=== PATIENT | female | born 1965 | race Caucasian/White ===

== ENCOUNTER → 2018-07-30 | Outpatient (REF) | payer OTHER ==
[~2018-07-30] MED LIST: COGENTIN; DILT120C3; ENAL20TA; FURO20TA2; HALDOL DECANOATE; LEVOXYL25 MCG; LIPI10TA; NASONEX; PEPC20TA2; RANI150C; SERT25TA2; SERTRALINE; TOPI50TA
== END ==
LOC: M LAB LCGH 11:27
PROVIDERS: ATTEND Obstetrics & Gynecology
DX: Z12.4 Encounter for screening for malignant neoplasm of cervix (principal)

== ENCOUNTER 2021-03-06 16:59 | Emergency (ER) | payer OTHER ==
[~2021-03-06] VITALS: Ht 162.6 cm; Wt 154.1 kg
[2021-03-06 18:06] LABS: HEMATOCRIT 42.7 % (36.0-47.0); MEAN CORPUSCULAR HEMOGLOBIN 29.7 pg (27.0-33.0); MEAN CORPUSCULAR HGB CONC 32.8 g/dl (32.0-36.5); MEAN CORPUSCULAR VOLUME 90.7 fl (80.0-96.0); PLATELET COUNT, AUTOMATED 387 10^3/uL (150-450); RED BLOOD COUNT 4.71 10^6/uL (4.00-5.40); WHITE BLOOD COUNT 11.2 10^3/uL (4.0-10.0)
[2021-03-06 18:33] LABS: ACETAMINOPHEN LEVEL < 2.0 UG/ML (10.0-30.0); ALBUMIN 3.7 GM/DL (3.2-5.2); ALT/SGPT 48 U/L (12-78); BILIRUBIN,DIRECT 0.1 MG/DL (0.0-0.2); BILIRUBIN,TOTAL 0.2 MG/DL (0.2-1.0); BLOOD UREA NITROGEN 11 MG/DL (7-18); CALCIUM LEVEL 8.7 MG/DL (8.5-10.1); CARBON DIOXIDE LEVEL 25 MEQ/L (21-32); CHLORIDE LEVEL 112 MEQ/L (98-107); CREATININE FOR GFR 1.02 MG/DL (0.55-1.30); ETHYL ALCOHOL (ETHANOL) < 0.003 % (0.000-0.010); GLOMERULAR FILTRATION RATE 59.7 (>51); GLUCOSE, FASTING 86 MG/DL (70-100); POTASSIUM SERUM 3.6 MEQ/L (3.5-5.1); SALICYLATE LEVEL < 1.7 MG/DL (5.0-30.0); SODIUM LEVEL 144 MEQ/L (136-145); TOTAL PROTEIN 7.6 GM/DL (6.4-8.2)
[2021-03-06 18:48] LABS: RSV AMPLIFICATION NEGATIVE (NEGATIVE)
[2021-03-06 20:50] LABS: AMPHETAMINES LEVEL URINE NEGATIVE (NEGATIVE); BARBITURATES URINE NEGATIVE (NEGATIVE); BENZODIAZEPINES URINE NEGATIVE (NEGATIVE); CANNABINOIDS URINE NEGATIVE (NEGATIVE); COCAINE METABOLITE URINE NEGATIVE (NEGATIVE); METHADONE URINE NEGATIVE (NEGATIVE); OPIATES URINE NEGATIVE (NEGATIVE); PHENCYCLIDINE URINE NEGATIVE (NEGATIVE)
[2021-03-06] MEDS ORDERED: VITMTA PO (22:54)
[2021-03-06] MEDS ORDERED: ENAL-36 PO (22:54)
[2021-03-06] MEDS ORDERED: BUPR1TAB56 PO (22:54)
[2021-03-06] MEDS ORDERED: GLIM2TAB4 PO (22:54)
[2021-03-06] MEDS ORDERED: ACET-897 PO (22:54)
[2021-03-06] MEDS ORDERED: ASPI-161 PO (22:54)
[2021-03-06] MEDS ORDERED: FLON1SPR (22:54)
[2021-03-06] MEDS ORDERED: FURO20TA2 PO (22:54)
[2021-03-06] MEDS ORDERED: VITA200015 PO (22:54)
[2021-03-06] MEDS ORDERED: VALT500T PO (22:54)
[2021-03-06] MEDS ORDERED: DILT240C82 PO (22:54)
[2021-03-06] MEDS ORDERED: OMEP40CA5 PO (22:54)
[2021-03-06] MEDS ORDERED: METO1TAB32 PO (22:54)
[2021-03-06] MEDS ORDERED: PRAZ1CAP PO (22:54)
[2021-03-06] MEDS ORDERED: HALO5TAB33 PO ×2 (22:54)
[2021-03-06] MEDS ORDERED: CVS55SPR (22:54)
[2021-03-06] MEDS ORDERED: SYNT125T PO (22:54)
[2021-03-06] MEDS ORDERED: TOPI100T9 PO (22:54)
[2021-03-06] MEDS ORDERED: MECL-86 PO (22:54)
[2021-03-06] MEDS ORDERED: PRAV40TA2 PO (22:54)
[2021-03-06] MEDS ORDERED: PRAZOSIN 1 MG CAP PO ONE (23:30)
[2021-03-06] MEDS ORDERED: PRAVASTATIN 20 MG TAB PO ONE (23:30)
[2021-03-06] MEDS ORDERED: TOPIRAMATE (TopAMAX) 100 MG TAB PO ONE ×2 (23:30→23:35)
[2021-03-06] MEDS ORDERED: ENALAPRIL MALEATE 10 MG TAB PO ONE (23:30)
[2021-03-06] MEDS ORDERED: buPROPion (WELLBUTRIN SR) 100 MG SR TAB PO ONE (23:30)
[2021-03-07] MEDS ORDERED: LEVOTHYROXINE 125MCG TABLET (0.125MG) PO ONE (06:00)
[2021-03-07] MEDS ORDERED: HOME MED LIST COMPLETE! XX SCH (06:55)
[2021-03-07] MEDS ORDERED: buPROPion 100 MG TAB PO SCH (09:35)
[2021-03-07] MEDS ORDERED: FUROSEMIDE 20 MG TAB PO SCH (09:35)
[2021-03-07] MEDS ORDERED: ASPIRIN 325 MG TAB PO SCH (09:35)
[2021-03-07] MEDS: valACYclovir HCL 500 MG TAB PO SCH (10:11)
[2021-03-07] MEDS: OMEPRAZOLE 20MG CAP PO SCH (10:11)
[2021-03-07] MEDS: ENALAPRIL MALEATE 10 MG TAB PO SCH ×2 (10:12→21:35)
[2021-03-07] MEDS: METOPROLOL SUCC *XL* 25MG TAB (TopROL *XL*) PO SCH (10:13)
[2021-03-07] MEDS: TOPIRAMATE (TopAMAX) 100 MG TAB PO SCH ×2 (10:16→21:35)
[2021-03-07] MEDS: ASPIRIN 81MG ENTERIC TABLET PO SCH (10:37)
[2021-03-07] MEDS ORDERED: FUROSEMIDE 20 MG TAB PO ONE (10:40)
[2021-03-07] MEDS: buPROPion (WELLBUTRIN SR) 100 MG SR TAB PO SCH ×2 (13:05→22:05)
[2021-03-07] MEDS: GLIMEPIRIDE 2 MG TAB PO SCH (21:32)
[2021-03-08] MEDS: ASPIRIN 81MG ENTERIC TABLET PO SCH (07:17)
[2021-03-08] MEDS: METOPROLOL SUCC *XL* 25MG TAB (TopROL *XL*) PO SCH (07:18)
[2021-03-08] MEDS: OMEPRAZOLE 20MG CAP PO SCH (07:18)
[2021-03-08] MEDS: TOPIRAMATE (TopAMAX) 100 MG TAB PO SCH (07:18)
[2021-03-08 07:19] VITALS: BP 141/94
[2021-03-08] MEDS: ENALAPRIL MALEATE 10 MG TAB PO SCH (07:19)
[2021-03-08] MEDS: valACYclovir HCL 500 MG TAB PO SCH (07:24)
[2021-03-08] MEDS: GLIMEPIRIDE 2 MG TAB PO SCH (08:08)
[2021-03-08] MEDS: buPROPion (WELLBUTRIN SR) 100 MG SR TAB PO SCH (08:09)
[2021-03-08] MEDS ORDERED: FUROSEMIDE 40 MG TAB PO SCH (09:00)
[2021-03-08] MEDS ORDERED: ASPIRIN 81 MG CHEW TABLET PO SCH (09:00)
[2021-03-08 09:35] VITALS: BP 137/93
[2021-04-16] MEDS ORDERED: ALBU83IN INH (22:41)
[2021-04-16] MEDS ORDERED: HALO10TA20 PO (22:41)
[2021-04-16] MEDS ORDERED: BENZ-52 PO (22:41)
[2021-04-16] MEDS ORDERED: DOCU100C16 PO (22:41)
[2021-04-16] MEDS ORDERED: FERR1TAB8 PO (22:41)
[2021-04-16] MEDS ORDERED: LISI10TA22 PO (22:41)
[2021-04-16] MEDS ORDERED: CHOL50002 PO (22:41)
[2021-04-25] MEDS ORDERED: HALO10TA20 PO (09:41)
[2021-04-25] MEDS ORDERED: TOPI200T7 PO (09:41)
[2021-04-25] MEDS ORDERED: BENZ-52 PO (09:41)
[2021-04-25] MEDS ORDERED: PRAZ1CAP PO (09:41)
== END 2021-03-08 09:38 ==
LOC: M ED 16:59
DX: F25.9 Schizoaffective disorder, unspecified (principal); F29 Unspecified psychosis not due to a substance or known physiological condition; K21.9 Gastro-esophageal reflux disease without esophagitis; I10 Essential (primary) hypertension; E78.5 Hyperlipidemia, unspecified; Z88.6 Allergy status to analgesic agent; Z79.899 Other long term (current) drug therapy; Z79.82 Long term (current) use of aspirin; Z79.890 Hormone replacement therapy

== ENCOUNTER 2021-05-08 12:23 | Emergency (ER) | payer OTHER ==
[~2021-05-08] VITALS: Ht 162.6 cm; Wt 146.2 kg
[~2021-05-08 12:23] MED LIST changes: +ACET-897 PO; +ALBU83IN INH; +ASPI-161 PO; +BENZ-52 PO; +BUPR1TAB56 PO; +CHOL50002 PO; +CVS55SPR; +DILT240C82 PO; +DOCU100C16 PO; +ENAL-36 PO; +FERR1TAB8 PO; +FLON1SPR; +FURO20TA2 PO; +GLIM2TAB4 PO; +HALO10TA20 PO; +HALO5TAB33 PO; +LISI10TA22 PO; +MECL-86 PO; +METO1TAB32 PO; +OMEP40CA5 PO; +PRAV40TA2 PO; +PRAZ1CAP PO; +SYNT125T PO; +TOPI100T9 PO; +TOPI200T7 PO; +VALT500T PO; +VITA200015 PO; +VITMTA PO
[2021-05-08 15:48] LABS: HEMATOCRIT 42.5 % (36.0-47.0); MEAN CORPUSCULAR HGB CONC 32.9 g/dl (32.0-36.5); MEAN CORPUSCULAR VOLUME 91.2 fl (80.0-96.0); PLATELET COUNT, AUTOMATED 341 10^3/uL (150-450); RED BLOOD COUNT 4.66 10^6/uL (4.00-5.40); WHITE BLOOD COUNT 9.3 10^3/uL (4.0-10.0)
[2021-05-08 16:02] LABS: ACETAMINOPHEN LEVEL < 2.0 UG/ML (10.0-30.0); ALBUMIN 3.6 GM/DL (3.2-5.2); ALT/SGPT 40 U/L (12-78); BILIRUBIN,DIRECT 0.1 MG/DL (0.0-0.2); BILIRUBIN,TOTAL 0.2 MG/DL (0.2-1.0); BLOOD UREA NITROGEN 9 MG/DL (7-18); CALCIUM LEVEL 9.1 MG/DL (8.5-10.1); CARBON DIOXIDE LEVEL 22 MEQ/L (21-32); CHLORIDE LEVEL 114 MEQ/L (98-107); CREATININE FOR GFR 0.78 MG/DL (0.55-1.30); ETHYL ALCOHOL (ETHANOL) < 0.003 % (0.000-0.010); GLOMERULAR FILTRATION RATE > 60.0 (>51); GLUCOSE, FASTING 73 MG/DL (70-100); POTASSIUM SERUM 3.9 MEQ/L (3.5-5.1); SALICYLATE LEVEL < 1.7 MG/DL (5.0-30.0); SODIUM LEVEL 142 MEQ/L (136-145)
[2021-05-08 21:01] LABS: AMPHETAMINES LEVEL URINE NEGATIVE (NEGATIVE); BARBITURATES URINE NEGATIVE (NEGATIVE); BENZODIAZEPINES URINE NEGATIVE (NEGATIVE); CANNABINOIDS URINE NEGATIVE (NEGATIVE); COCAINE METABOLITE URINE NEGATIVE (NEGATIVE); METHADONE URINE NEGATIVE (NEGATIVE); OPIATES URINE NEGATIVE (NEGATIVE); PHENCYCLIDINE URINE NEGATIVE (NEGATIVE)
[2021-05-09] MEDS ORDERED: ENAL-36 PO (02:03)
[2021-05-09] MEDS ORDERED: PRAZ1CAP PO (02:03)
[2021-05-09] MEDS ORDERED: HALO10TA20 PO (02:03)
[2021-05-09] MEDS ORDERED: TOPI200T7 PO (02:03)
[2021-05-09] MEDS ORDERED: HOME MED LIST COMPLETE! XX SCH (02:05)
[2021-05-09] MEDS ORDERED: ENALAPRIL MALEATE 10 MG TAB PO ONE (08:45)
[2021-05-09] MEDS ORDERED: OMEPRAZOLE 20MG CAP PO ONE (08:45)
[2021-05-09] MEDS ORDERED: TOPIRAMATE (TopAMAX) 100 MG TAB PO ONE (08:45)
[2021-05-09] MEDS ORDERED: LEVOTHYROXINE 125MCG TABLET (0.125MG) PO ONE (09:00)
[2021-05-09 09:02] VITALS: BP 135/74
[2021-05-09 09:03] VITALS: BP 145/68
== END 2021-05-09 09:05 ==
LOC: M ED 12:23
DX: F20.9 Schizophrenia, unspecified (principal); I10 Essential (primary) hypertension; K21.9 Gastro-esophageal reflux disease without esophagitis; Z87.891 Personal history of nicotine dependence; Z79.899 Other long term (current) drug therapy; Z79.82 Long term (current) use of aspirin; Z88.2 Allergy status to sulfonamides; Z88.5 Allergy status to narcotic agent

== ENCOUNTER 2021-06-05 16:34 | Inpatient (IN) | payer OTHER ==
[~2021-06-05] VITALS: Ht 175.3 cm; Wt 143.6 kg
[2021-06-05 18:33] LABS: HEMATOCRIT 43.6 % (36.0-47.0); HEMOGLOBIN 14.3 g/dl (12.0-15.5); MEAN CORPUSCULAR HEMOGLOBIN 30.2 pg (27.0-33.0); MEAN CORPUSCULAR HGB CONC 32.8 g/dl (32.0-36.5); MEAN CORPUSCULAR VOLUME 92.2 fl (80.0-96.0); PLATELET COUNT, AUTOMATED 349 10^3/uL (150-450); RED BLOOD COUNT 4.73 10^6/uL (4.00-5.40); WHITE BLOOD COUNT 12.2 10^3/uL (4.0-10.0)
[2021-06-05 19:11] LABS: RSV AMPLIFICATION NEGATIVE (NEGATIVE)
[2021-06-05 19:13] LABS: ACETAMINOPHEN LEVEL < 2.0 UG/ML (10.0-30.0); ALBUMIN 3.7 GM/DL (3.2-5.2); ALT/SGPT 64 U/L (12-78); AMPHETAMINES LEVEL URINE NEGATIVE (NEGATIVE); BARBITURATES URINE NEGATIVE (NEGATIVE); BENZODIAZEPINES URINE NEGATIVE (NEGATIVE); BILIRUBIN,DIRECT 0.1 MG/DL (0.0-0.2); BILIRUBIN,TOTAL 0.4 MG/DL (0.2-1.0); BLOOD UREA NITROGEN 13 MG/DL (7-18); CALCIUM LEVEL 8.9 MG/DL (8.5-10.1); CANNABINOIDS URINE NEGATIVE (NEGATIVE); CARBON DIOXIDE LEVEL 27 MEQ/L (21-32); CHLORIDE LEVEL 107 MEQ/L (98-107); COCAINE METABOLITE URINE NEGATIVE (NEGATIVE); CREATININE FOR GFR 1.03 MG/DL (0.55-1.30); ETHYL ALCOHOL (ETHANOL) 0.005 % (0.000-0.010); GLOMERULAR FILTRATION RATE 58.8 (>51); GLUCOSE, FASTING 86 MG/DL (70-100); METHADONE URINE NEGATIVE (NEGATIVE); OPIATES URINE NEGATIVE (NEGATIVE); PHENCYCLIDINE URINE NEGATIVE (NEGATIVE); POTASSIUM SERUM 4.1 MEQ/L (3.5-5.1); SALICYLATE LEVEL < 1.7 MG/DL (5.0-30.0); SODIUM LEVEL 139 MEQ/L (136-145); TOTAL PROTEIN 7.4 GM/DL (6.4-8.2)
[2021-06-05] MEDS ORDERED: ACETAMINOPHEN TAB 650MG DOSE (2X325MG) PO PRN (21:05)
[2021-06-05] MEDS ORDERED: MOM 30ML SUSPENSION UDC PO PRN (21:05)
[2021-06-05] MEDS ORDERED: traZODone 50 MG TAB PO PRN (21:05)
[2021-06-05] MEDS ORDERED: MAALOX 30 ML SUSP *UDC PO PRN (21:05)
[2021-06-05 22:33] VITALS: BP 125/74
[2021-06-05] MEDS ORDERED: HALO5TAB33 PO (23:21)
[2021-06-05] MEDS ORDERED: LISI10TA22 PO ×2 (23:21→23:25)
[2021-06-05] MEDS ORDERED: D3 H2000 PO (23:21)
[2021-06-05] MEDS ORDERED: BENZ-52 PO (23:21)
[2021-06-05] MEDS ORDERED: ALBU8.5H INH (23:21)
[2021-06-05] MEDS ORDERED: BUPR300T92 PO (23:21)
[2021-06-05] MEDS ORDERED: HALO10AM IM (23:21)
[2021-06-05] MEDS ORDERED: SYNT137T7 PO (23:21)
[2021-06-05] MEDS ORDERED: BISA1TAB PO (23:21)
[2021-06-05] MEDS ORDERED: BUPR-365 PO (23:21)
[2021-06-05] MEDS ORDERED: PATIENT COMMENT (23:24)
[2021-06-05] MEDS ORDERED: HOME MED LIST COMPLETE! XX SCH (23:25)
[2021-06-05] MEDS ORDERED: ENAL-36 PO (23:25)
[2021-06-06] MEDS ORDERED: ALBUTEROL 90 MCG/ACT 8GM HFA INHALER INH PRN (03:25)
[2021-06-06] MEDS ORDERED: BISACODYL 5 MG TAB PO PRN (03:25)
[2021-06-06] MEDS ORDERED: ALBUTEROL SULFATE 2.5 MG/0.5 ML INH NEB SOLN INH PRN (03:25)
[2021-06-06 06:03] VITALS: BP 143/91
[2021-06-06] MEDS: LEVOTHYROXINE 137MCG TABLET (0.137MG) PO SCH (06:34)
[2021-06-06] MEDS: buPROPion **XL** TABLET 150MG (WELLBUTRIN XL) PO SCH (08:26)
[2021-06-06] MEDS: FUROSEMIDE 40 MG TAB PO SCH (08:27)
[2021-06-06] MEDS: GLIMEPIRIDE 2 MG TAB PO SCH ×2 (08:27→17:44)
[2021-06-06] MEDS: METOPROLOL SUCC *XL* 25MG TAB (TopROL *XL*) PO SCH (08:27)
[2021-06-06] MEDS: OMEPRAZOLE 20MG CAP PO SCH (08:27)
[2021-06-06] MEDS: ASPIRIN 81MG ENTERIC TABLET PO SCH (08:28)
[2021-06-06] MEDS: BENZTROPINE 1 MG TAB PO SCH ×2 (08:28→21:46)
[2021-06-06] MEDS: VITAMIN D 1,000 INTERNATIONAL UNITS TABLET PO SCH (08:28)
[2021-06-06] MEDS: MULTIVITAMINS/MINERALS THERAP 1 TAB PO SCH (08:28)
[2021-06-06] MEDS: valACYclovir HCL 500 MG TAB PO SCH (08:28)
[2021-06-06] MEDS: TOPIRAMATE (TopAMAX) 100 MG TAB PO SCH ×2 (08:28→21:46)
[2021-06-06] MEDS ORDERED: buPROPion **XL** TABLET 150MG (WELLBUTRIN XL) PO SCH (09:00)
[2021-06-06] MEDS ORDERED: HALOPERIDOL DECANOATE 100 MG/ML VIAL (J1631) IM ONE (10:55)
[2021-06-06 16:17] VITALS: BP 130/80
[2021-06-06] MEDS ORDERED: PRAZOSIN 1 MG CAP PO SCH (21:00)
[2021-06-07 06:31] VITALS: BP 125/70
[2021-06-07] MEDS: LEVOTHYROXINE 137MCG TABLET (0.137MG) PO SCH (06:45)
[2021-06-07] MEDS: GLIMEPIRIDE 2 MG TAB PO SCH (06:45)
[2021-06-07] MEDS: METOPROLOL SUCC *XL* 25MG TAB (TopROL *XL*) PO SCH (08:35)
[2021-06-07] MEDS: VITAMIN D 1,000 INTERNATIONAL UNITS TABLET PO SCH (08:36)
[2021-06-07] MEDS: valACYclovir HCL 500 MG TAB PO SCH (08:36)
[2021-06-07] MEDS: FUROSEMIDE 40 MG TAB PO SCH (08:37)
[2021-06-07] MEDS: TOPIRAMATE (TopAMAX) 100 MG TAB PO SCH (08:38)
[2021-06-07] MEDS: buPROPion **XL** TABLET 150MG (WELLBUTRIN XL) PO SCH (08:38)
[2021-06-07 08:39] VITALS: BP 125/70
[2021-06-07] MEDS: ASPIRIN 81MG ENTERIC TABLET PO SCH (08:39)
[2021-06-07] MEDS: MULTIVITAMINS/MINERALS THERAP 1 TAB PO SCH (08:39)
[2021-06-07] MEDS: OMEPRAZOLE 20MG CAP PO SCH (08:39)
[2021-06-07] MEDS: BENZTROPINE 1 MG TAB PO SCH (08:39)
[2021-06-07] MEDS ORDERED: BUPR-365 PO (09:59)
[2021-06-07] MEDS ORDERED: HALO5TAB33 PO (09:59)
[2021-06-07] MEDS ORDERED: PRAZ1CAP PO (09:59)
[2021-06-07] MEDS ORDERED: HALO10AM IM (09:59)
[2021-06-07] MEDS ORDERED: BUPR300T92 PO (09:59)
[2021-06-07 11:13] LABS: CHOLESTEROL RISK RATIO 3.214 (<5)
== END 2021-06-07 14:00 | disposition home or self-care (01) | DRG 750 ==
LOC: M ED 16:34 → M ED INP 21:02 → M PSY 22:05
PROVIDERS: ADMIT Student in an Organized Health Care Education/Training Program; ATTEND Student in an Organized Health Care Education/Training Program
DX: F20.0 Paranoid schizophrenia (principal); F20.1 Disorganized schizophrenia; Z91.19 Patient's noncompliance with other medical treatment and regimen; I10 Essential (primary) hypertension; E03.9 Hypothyroidism, unspecified; E78.5 Hyperlipidemia, unspecified; Z79.82 Long term (current) use of aspirin; Z79.899 Other long term (current) drug therapy; Z88.5 Allergy status to narcotic agent; Z88.2 Allergy status to sulfonamides; Z87.891 Personal history of nicotine dependence

== ENCOUNTER 2021-08-03 13:54 | Observation (INO) | payer OTHER ==
[~2021-08-03] VITALS: Ht 175.3 cm; Wt 136.0 kg
[~2021-08-03 13:54] MED LIST changes: +ALBU8.5H INH; +BISA1TAB PO; +BUPR-365 PO; +BUPR300T92 PO; -CVS55SPR; +CVS55SPR NARES; +D3 H2000 PO; +HALO10AM IM; +PATIENT COMMENT; +SYNT137T7 PO; -VITA200015 PO; +VITA200035 PO
[2021-08-03 16:44] LABS: HEMATOCRIT 42.7 % (36.0-47.0); HEMOGLOBIN 14.2 g/dl (12.0-15.5); MEAN CORPUSCULAR HEMOGLOBIN 30.1 pg (27.0-33.0); MEAN CORPUSCULAR HGB CONC 33.3 g/dl (32.0-36.5); MEAN CORPUSCULAR VOLUME 90.5 fl (80.0-96.0); PLATELET COUNT, AUTOMATED 376 10^3/uL (150-450); RED BLOOD COUNT 4.72 10^6/uL (4.00-5.40); WHITE BLOOD COUNT 11.4 10^3/uL (4.0-10.0)
[2021-08-03 17:11] LABS: ACETAMINOPHEN LEVEL < 2.0 UG/ML (10.0-30.0); ALBUMIN 3.6 GM/DL (3.2-5.2); ALT/SGPT 59 U/L (12-78); BILIRUBIN,DIRECT < 0.1 MG/DL (0.0-0.2); BILIRUBIN,TOTAL 0.4 MG/DL (0.2-1.0); BLOOD UREA NITROGEN 10 MG/DL (7-18); CARBON DIOXIDE LEVEL 23 MEQ/L (21-32); CHLORIDE LEVEL 113 MEQ/L (98-107); CREATININE FOR GFR 0.88 MG/DL (0.55-1.30); ETHYL ALCOHOL (ETHANOL) < 0.003 % (0.000-0.010); GLOMERULAR FILTRATION RATE > 60.0 (>51); GLUCOSE, FASTING 109 MG/DL (70-100); POTASSIUM SERUM 5.4 MEQ/L (3.5-5.1); SALICYLATE LEVEL < 1.7 MG/DL (5.0-30.0); SODIUM LEVEL 143 MEQ/L (136-145); THYROID STIMULATING HORMONE 0.872 uIU/ML (0.358-3.740); TOTAL PROTEIN 7.6 GM/DL (6.4-8.2)
[2021-08-03 17:19] LABS: AMPHETAMINES LEVEL URINE NEGATIVE (NEGATIVE); BARBITURATES URINE NEGATIVE (NEGATIVE); BENZODIAZEPINES URINE NEGATIVE (NEGATIVE); CANNABINOIDS URINE NEGATIVE (NEGATIVE); COCAINE METABOLITE URINE NEGATIVE (NEGATIVE); METHADONE URINE NEGATIVE (NEGATIVE); OPIATES URINE NEGATIVE (NEGATIVE); PHENCYCLIDINE URINE NEGATIVE (NEGATIVE)
[2021-08-03 17:39] LABS: RSV AMPLIFICATION NEGATIVE (NEGATIVE)
[2021-08-03] MEDS ORDERED: PRAV40TA2 PO (18:12)
[2021-08-03] MEDS ORDERED: PRAZ1CAP PO (18:48)
[2021-08-03] MEDS ORDERED: HALO5TAB33 PO (18:48)
[2021-08-03] MEDS ORDERED: HOME MED LIST COMPLETE! XX SCH (18:50)
[2021-08-03] MEDS ORDERED: ACETAMINOPHEN TAB 650MG DOSE (2X325MG) PO PRN (19:50)
[2021-08-03] MEDS ORDERED: MOM 30ML SUSPENSION UDC PO PRN (19:50)
[2021-08-03] MEDS ORDERED: MAALOX 30 ML SUSP *UDC PO PRN (19:50)
[2021-08-03] MEDS ORDERED: BISACODYL 5 MG TAB PO PRN (20:10)
[2021-08-03] MEDS ORDERED: ALBUTEROL SULFATE 2.5 MG/0.5 ML INH NEB SOLN INH PRN (20:10)
[2021-08-03] MEDS ORDERED: ALBUTEROL 90 MCG/ACT 8GM HFA INHALER INH PRN (20:10)
[2021-08-03] MEDS ORDERED: PRAVASTATIN 20 MG TAB PO SCH (21:00)
[2021-08-03] MEDS ORDERED: PRAZOSIN 1 MG CAP PO SCH (21:00)
[2021-08-03] MEDS: HEPARIN SOD (PORCINE) 5000UNITS/ML 1ML VIAL/SYRINGE SC SCH (22:00)
[2021-08-03] MEDS: TOPIRAMATE (TopAMAX) 100 MG TAB PO SCH (22:59)
[2021-08-03 23:03] LABS: BLOOD UREA NITROGEN 11 MG/DL (7-18); CARBON DIOXIDE LEVEL 24 MEQ/L (21-32); CHLORIDE LEVEL 113 MEQ/L (98-107); CREATININE FOR GFR 0.86 MG/DL (0.55-1.30); GLOMERULAR FILTRATION RATE > 60.0 (>51); GLUCOSE, FASTING 77 MG/DL (70-100); MAGNESIUM LEVEL 2.3 MG/DL (1.8-2.4); POTASSIUM SERUM 3.8 MEQ/L (3.5-5.1); SODIUM LEVEL 145 MEQ/L (136-145)
[2021-08-04 02:00] VITALS: BP 144/82
[2021-08-04] MEDS: HEPARIN SOD (PORCINE) 5000UNITS/ML 1ML VIAL/SYRINGE SC SCH ×3 (05:50→14:34)
[2021-08-04 06:00] VITALS: BP 131/71
[2021-08-04] MEDS ORDERED: LEVOTHYROXINE 137MCG TABLET (0.137MG) PO SCH (06:00)
[2021-08-04] MEDS: HumaLOG INSULIN (NovoLOG) PER UNIT SC SCH ×2 (07:30→12:51)
[2021-08-04] MEDS ORDERED: GLUCOSE 4GM CHEW TABLET PO PRN (07:35)
[2021-08-04] MEDS ORDERED: GLUCAGON INJ 1MG VIAL SC PRN (07:35)
[2021-08-04] MEDS ORDERED: DEXTROSE 50% 50 ML SYRINGE IV PRN (07:35)
[2021-08-04 07:47] VITALS: BP 123/77
[2021-08-04 08:47] LABS: BASO % 0.5 % (0.0-1.0); EOS # 0.2 10^3/uL (0.0-0.5); EOS % 2.3 % (0.0-3.0); HEMATOCRIT 41.8 % (36.0-47.0); HEMOGLOBIN 13.7 g/dl (12.0-15.5); LYMPH # 1.5 10^3/uL (1.5-5.0); LYMPH % 20.6 % (24.0-44.0); MEAN CORPUSCULAR HEMOGLOBIN 29.7 pg (27.0-33.0); MEAN CORPUSCULAR HGB CONC 32.8 g/dl (32.0-36.5); MEAN CORPUSCULAR VOLUME 90.5 fl (80.0-96.0); MONO # 0.7 10^3/uL (0.0-0.8); MONO % 9.3 % (2.0-8.0); NEUTROPHILS # 4.9 10^3/uL (1.5-8.5); NEUTROPHILS % 66.9 % (36.0-66.0); PLATELET COUNT, AUTOMATED 350 10^3/uL (150-450); RED BLOOD COUNT 4.62 10^6/uL (4.00-5.40); WHITE BLOOD COUNT 7.4 10^3/uL (4.0-10.0)
[2021-08-04] MEDS ORDERED: FUROSEMIDE 20 MG TAB PO SCH (09:00)
[2021-08-04] MEDS ORDERED: valACYclovir HCL 500 MG TAB PO SCH (09:00)
[2021-08-04] MEDS ORDERED: MULTIVITAMINS/MINERALS THERAP 1 TAB PO SCH (09:00)
[2021-08-04] MEDS ORDERED: OMEPRAZOLE 20MG CAP PO SCH (09:00)
[2021-08-04] MEDS ORDERED: ASPIRIN 81MG ENTERIC TABLET PO SCH (09:00)
[2021-08-04 09:06] LABS: ALBUMIN 3.4 GM/DL (3.2-5.2); ALT/SGPT 51 U/L (12-78); BILIRUBIN,TOTAL 0.4 MG/DL (0.2-1.0); BLOOD UREA NITROGEN 11 MG/DL (7-18); CARBON DIOXIDE LEVEL 22 MEQ/L (21-32); CHLORIDE LEVEL 112 MEQ/L (98-107); CREATININE FOR GFR 0.77 MG/DL (0.55-1.30); GLOMERULAR FILTRATION RATE > 60.0 (>51); GLUCOSE, FASTING 90 MG/DL (70-100); MAGNESIUM LEVEL 2.3 MG/DL (1.8-2.4); POTASSIUM SERUM 3.8 MEQ/L (3.5-5.1); SODIUM LEVEL 141 MEQ/L (136-145); TOTAL PROTEIN 6.9 GM/DL (6.4-8.2)
[2021-08-04 09:38] VITALS: BP 127/84
[2021-08-04] MEDS: TOPIRAMATE (TopAMAX) 100 MG TAB PO SCH (09:38)
[2021-08-04 15:46] VITALS: BP 128/79
[2021-08-04] MEDS ORDERED: HumaLOG INSULIN (NovoLOG) PER UNIT SC SCH (21:00)
== END 2021-08-04 16:00 ==
LOC: M ED 13:54 → M ED INP 19:50 → M MSPAV 08-04 02:06
PROVIDERS: ADMIT Family Medicine; ATTEND Family Medicine
DX: T43.292A Poisoning by other antidepressants, intentional self-harm, initial encounter (principal); Y92.89 Other specified places as the place of occurrence of the external cause; I10 Essential (primary) hypertension; E03.9 Hypothyroidism, unspecified; E11.9 Type 2 diabetes mellitus without complications; E78.5 Hyperlipidemia, unspecified; K21.9 Gastro-esophageal reflux disease without esophagitis; M72.2 Plantar fascial fibromatosis; F29 Unspecified psychosis not due to a substance or known physiological condition; F25.9 Schizoaffective disorder, unspecified; Z79.82 Long term (current) use of aspirin; Z79.899 Other long term (current) drug therapy; Z88.2 Allergy status to sulfonamides; Z88.5 Allergy status to narcotic agent
CPT/HCPCS: 36415; 80048; 80053; 80076; 80143; 80307; 82077; 82550; 83735; 84443; 85025; 85027; 87631; 93005; 93041; 94760; 97161; 99285; J1644; J1815

== ENCOUNTER 2021-08-04 13:52 | Inpatient (IN) | payer OTHER ==
[~2021-08-04] VITALS: Ht 172.7 cm; Wt 130.3 kg
[~2021-08-04 13:52] MED LIST changes: +ALBU2.5V10 INH; -ALBU83IN INH
[2021-08-04] MEDS ORDERED: MAALOX 30 ML SUSP *UDC PO PRN (13:55)
[2021-08-04] MEDS ORDERED: MOM 30ML SUSPENSION UDC PO PRN (13:55)
[2021-08-04] MEDS ORDERED: traZODone 50 MG TAB PO PRN (13:55)
[2021-08-04] MEDS ORDERED: ACETAMINOPHEN TAB 650MG DOSE (2X325MG) PO PRN (13:55)
[2021-08-04 16:00] VITALS: BP 127/76
[2021-08-04] MEDS: TOPIRAMATE (TopAMAX) 100 MG TAB PO SCH (20:19)
[2021-08-04] MEDS: PRAZOSIN 1 MG CAP PO SCH (20:19)
[2021-08-05 06:38] VITALS: BP 109/58
[2021-08-05] MEDS: buPROPion **XL** TABLET 150MG (WELLBUTRIN XL) PO SCH (07:47)
[2021-08-05] MEDS: TOPIRAMATE (TopAMAX) 100 MG TAB PO SCH ×2 (07:47→20:43)
[2021-08-05] MEDS ORDERED: HOME MED LIST COMPLETE! XX SCH (10:15)
[2021-08-05] MEDS ORDERED: ALBUTEROL 90 MCG/ACT 8GM HFA INHALER INH PRN (11:30)
[2021-08-05] MEDS ORDERED: BISACODYL 5 MG TAB PO PRN (11:30)
[2021-08-05] MEDS ORDERED: ALBUTEROL SULFATE 2.5 MG/0.5 ML INH NEB SOLN INH PRN (11:30)
[2021-08-05] MEDS: MULTIVITAMINS/MINERALS THERAP 1 TAB PO SCH (12:53)
[2021-08-05] MEDS: valACYclovir HCL 500 MG TAB PO SCH (12:53)
[2021-08-05] MEDS: FUROSEMIDE 40 MG TAB PO SCH (12:53)
[2021-08-05] MEDS: OMEPRAZOLE 20MG CAP PO SCH (12:53)
[2021-08-05] MEDS: ASPIRIN 81MG ENTERIC TABLET PO SCH (12:53)
[2021-08-05 16:43] VITALS: BP 144/75
[2021-08-05] MEDS: GLIMEPIRIDE 2 MG TAB PO SCH (17:06)
[2021-08-05 20:37] LABS: BASO # 0.1 10^3/uL (0.0-0.2); BASO % 0.5 % (0.0-1.0); EOS # 0.3 10^3/uL (0.0-0.5); EOS % 2.5 % (0.0-3.0); HEMATOCRIT 42.6 % (36.0-47.0); HEMOGLOBIN 14.1 g/dl (12.0-15.5); LYMPH # 3.3 10^3/uL (1.5-5.0); LYMPH % 26.7 % (24.0-44.0); MEAN CORPUSCULAR HEMOGLOBIN 30.2 pg (27.0-33.0); MEAN CORPUSCULAR HGB CONC 33.1 g/dl (32.0-36.5); MEAN CORPUSCULAR VOLUME 91.2 fl (80.0-96.0); MONO % 8.1 % (2.0-8.0); NEUTROPHILS # 7.8 10^3/uL (1.5-8.5); NEUTROPHILS % 61.9 % (36.0-66.0); PLATELET COUNT, AUTOMATED 368 10^3/uL (150-450); RED BLOOD COUNT 4.67 10^6/uL (4.00-5.40); WHITE BLOOD COUNT 12.5 10^3/uL (4.0-10.0)
[2021-08-05] MEDS: PRAVASTATIN 20 MG TAB PO SCH (20:43)
[2021-08-05] MEDS: PRAZOSIN 1 MG CAP PO SCH (20:43)
[2021-08-05 21:00] LABS: ALBUMIN 3.5 GM/DL (3.2-5.2); BILIRUBIN,TOTAL 0.1 MG/DL (0.2-1.0); CREATININE FOR GFR 1.09 MG/DL (0.55-1.30); GLOMERULAR FILTRATION RATE 55.1 (>51); MAGNESIUM LEVEL 2.2 MG/DL (1.8-2.4); POTASSIUM SERUM 3.6 MEQ/L (3.5-5.1); TOTAL PROTEIN 7.5 GM/DL (6.4-8.2)
[2021-08-05] MEDS ORDERED: GLIMEPIRIDE 2 MG TAB PO SCH (21:00)
[2021-08-06] MEDS: LEVOTHYROXINE 137MCG TABLET (0.137MG) PO SCH (06:06)
[2021-08-06 06:18] VITALS: BP 121/54
[2021-08-06] MEDS: GLIMEPIRIDE 2 MG TAB PO SCH ×2 (06:36→18:28)
[2021-08-06] MEDS: FUROSEMIDE 40 MG TAB PO SCH (08:20)
[2021-08-06] MEDS: MULTIVITAMINS/MINERALS THERAP 1 TAB PO SCH (08:20)
[2021-08-06] MEDS: ASPIRIN 81MG ENTERIC TABLET PO SCH (08:20)
[2021-08-06] MEDS: OMEPRAZOLE 20MG CAP PO SCH (08:20)
[2021-08-06] MEDS: valACYclovir HCL 500 MG TAB PO SCH (08:21)
[2021-08-06] MEDS: buPROPion **XL** TABLET 150MG (WELLBUTRIN XL) PO SCH (08:21)
[2021-08-06] MEDS: TOPIRAMATE (TopAMAX) 100 MG TAB PO SCH ×2 (08:21→20:39)
[2021-08-06] MEDS ORDERED: DEXTROSE 50% 50 ML SYRINGE IV PRN (11:45)
[2021-08-06] MEDS ORDERED: GLUCAGON INJ 1MG VIAL SC PRN (11:45)
[2021-08-06] MEDS ORDERED: GLUCOSE 4GM CHEW TABLET PO PRN (11:45)
[2021-08-06] MEDS: INSULIN LISPRO (NovoLOG) PER UNIT SC SCH ×3 (12:00→20:40)
[2021-08-06 18:57] VITALS: BP 130/62
[2021-08-06] MEDS: PRAVASTATIN 20 MG TAB PO SCH (20:39)
[2021-08-06] MEDS: PRAZOSIN 1 MG CAP PO SCH (20:39)
[2021-08-07] MEDS: LEVOTHYROXINE 137MCG TABLET (0.137MG) PO SCH (05:50)
[2021-08-07 06:30] VITALS: BP 107/64
[2021-08-07] MEDS: INSULIN LISPRO (NovoLOG) PER UNIT SC SCH ×4 (06:45→20:48)
[2021-08-07] MEDS: GLIMEPIRIDE 2 MG TAB PO SCH ×3 (06:46→17:30)
[2021-08-07 07:41] LABS: CHOLESTEROL RISK RATIO 2.637 (<5)
[2021-08-07] MEDS: FUROSEMIDE 40 MG TAB PO SCH (08:35)
[2021-08-07] MEDS: MULTIVITAMINS/MINERALS THERAP 1 TAB PO SCH (08:35)
[2021-08-07] MEDS: TOPIRAMATE (TopAMAX) 100 MG TAB PO SCH ×2 (08:35→20:46)
[2021-08-07] MEDS: buPROPion **XL** TABLET 150MG (WELLBUTRIN XL) PO SCH (08:35)
[2021-08-07] MEDS: SERTRALINE HCL 50 MG TAB PO SCH (08:35)
[2021-08-07] MEDS: valACYclovir HCL 500 MG TAB PO SCH (08:35)
[2021-08-07] MEDS: OMEPRAZOLE 20MG CAP PO SCH (08:38)
[2021-08-07] MEDS: ASPIRIN 81MG ENTERIC TABLET PO SCH (08:38)
[2021-08-07] MEDS ORDERED: BENZTROPINE 0.5 MG TAB PO PRN (08:55)
[2021-08-07 18:00] VITALS: BP 140/88
[2021-08-07] MEDS: PRAVASTATIN 20 MG TAB PO SCH (20:46)
[2021-08-07] MEDS: PRAZOSIN 1 MG CAP PO SCH (20:46)
[2021-08-08] MEDS: LEVOTHYROXINE 137MCG TABLET (0.137MG) PO SCH (05:42)
[2021-08-08] MEDS: INSULIN LISPRO (NovoLOG) PER UNIT SC SCH ×4 (06:57→20:30)
[2021-08-08] MEDS: GLIMEPIRIDE 2 MG TAB PO SCH ×2 (06:59→17:10)
[2021-08-08 07:02] VITALS: BP 147/90
[2021-08-08] MEDS: TOPIRAMATE (TopAMAX) 100 MG TAB PO SCH ×2 (09:38→20:38)
[2021-08-08] MEDS: DICLOFENAC EPOLAMINE 1.3 % PATCH TOP SCH ×2 (09:38→20:37)
[2021-08-08] MEDS: valACYclovir HCL 500 MG TAB PO SCH (09:38)
[2021-08-08] MEDS: buPROPion **XL** TABLET 150MG (WELLBUTRIN XL) PO SCH (09:39)
[2021-08-08] MEDS: SERTRALINE HCL 50 MG TAB PO SCH (09:39)
[2021-08-08] MEDS: ASPIRIN 81MG ENTERIC TABLET PO SCH (09:39)
[2021-08-08] MEDS: OMEPRAZOLE 20MG CAP PO SCH (09:39)
[2021-08-08] MEDS: MULTIVITAMINS/MINERALS THERAP 1 TAB PO SCH (09:39)
[2021-08-08] MEDS: FUROSEMIDE 40 MG TAB PO SCH (09:40)
[2021-08-08 16:45] VITALS: BP 148/75
[2021-08-08] MEDS: PRAVASTATIN 20 MG TAB PO SCH (20:37)
[2021-08-08] MEDS: PRAZOSIN 1 MG CAP PO SCH (20:38)
[2021-08-09 06:24] VITALS: BP 142/81
[2021-08-09] MEDS: GLIMEPIRIDE 2 MG TAB PO SCH ×2 (06:29→17:10)
[2021-08-09] MEDS: LEVOTHYROXINE 137MCG TABLET (0.137MG) PO SCH (06:29)
[2021-08-09] MEDS: INSULIN LISPRO (NovoLOG) PER UNIT SC SCH ×4 (06:33→20:31)
[2021-08-09] MEDS: valACYclovir HCL 500 MG TAB PO SCH (08:24)
[2021-08-09] MEDS: SERTRALINE HCL 50 MG TAB PO SCH (08:24)
[2021-08-09] MEDS: OMEPRAZOLE 20MG CAP PO SCH (08:24)
[2021-08-09] MEDS: FUROSEMIDE 40 MG TAB PO SCH (08:24)
[2021-08-09] MEDS: buPROPion **XL** TABLET 150MG (WELLBUTRIN XL) PO SCH (08:24)
[2021-08-09] MEDS: ASPIRIN 81MG ENTERIC TABLET PO SCH (08:24)
[2021-08-09] MEDS: TOPIRAMATE (TopAMAX) 100 MG TAB PO SCH ×2 (08:24→20:29)
[2021-08-09] MEDS: MULTIVITAMINS/MINERALS THERAP 1 TAB PO SCH (08:25)
[2021-08-09] MEDS: DICLOFENAC EPOLAMINE 1.3 % PATCH TOP SCH ×2 (08:26→20:29)
[2021-08-09] MEDS ORDERED: ACETAMINOPHEN 325 MG TAB PO PRN (08:50)
[2021-08-09 18:18] VITALS: BP 138/83
[2021-08-09] MEDS: PRAZOSIN 1 MG CAP PO SCH (20:28)
[2021-08-09] MEDS: PRAVASTATIN 20 MG TAB PO SCH (20:29)
[2021-08-10] MEDS: LEVOTHYROXINE 137MCG TABLET (0.137MG) PO SCH (06:34)
[2021-08-10] MEDS: GLIMEPIRIDE 2 MG TAB PO SCH ×2 (06:34→16:56)
[2021-08-10] MEDS: INSULIN LISPRO (NovoLOG) PER UNIT SC SCH (06:37)
[2021-08-10 06:44] VITALS: BP 116/59
[2021-08-10] MEDS: DICLOFENAC EPOLAMINE 1.3 % PATCH TOP SCH ×2 (08:32→20:11)
[2021-08-10] MEDS: SERTRALINE HCL 50 MG TAB PO SCH (08:33)
[2021-08-10] MEDS: ASPIRIN 81MG ENTERIC TABLET PO SCH (08:33)
[2021-08-10] MEDS: valACYclovir HCL 500 MG TAB PO SCH (08:33)
[2021-08-10] MEDS: OMEPRAZOLE 20MG CAP PO SCH (08:33)
[2021-08-10] MEDS: MULTIVITAMINS/MINERALS THERAP 1 TAB PO SCH (08:33)
[2021-08-10] MEDS: buPROPion **XL** TABLET 150MG (WELLBUTRIN XL) PO SCH (08:33)
[2021-08-10] MEDS: FUROSEMIDE 40 MG TAB PO SCH (08:33)
[2021-08-10] MEDS: TOPIRAMATE (TopAMAX) 100 MG TAB PO SCH ×2 (08:34→20:12)
[2021-08-10 18:37] VITALS: BP 134/80
[2021-08-10] MEDS: PRAVASTATIN 20 MG TAB PO SCH (20:11)
[2021-08-10] MEDS: PRAZOSIN 1 MG CAP PO SCH (20:12)
[2021-08-11] MEDS: GLIMEPIRIDE 2 MG TAB PO SCH ×2 (06:28→17:15)
[2021-08-11] MEDS: LEVOTHYROXINE 137MCG TABLET (0.137MG) PO SCH (06:28)
[2021-08-11 07:13] VITALS: BP 141/83
[2021-08-11] MEDS: TOPIRAMATE (TopAMAX) 100 MG TAB PO SCH ×2 (08:44→20:18)
[2021-08-11] MEDS: valACYclovir HCL 500 MG TAB PO SCH (08:44)
[2021-08-11] MEDS: ASPIRIN 81MG ENTERIC TABLET PO SCH (08:44)
[2021-08-11] MEDS: OMEPRAZOLE 20MG CAP PO SCH (08:44)
[2021-08-11] MEDS: buPROPion **XL** TABLET 150MG (WELLBUTRIN XL) PO SCH (08:45)
[2021-08-11] MEDS: FUROSEMIDE 40 MG TAB PO SCH (08:45)
[2021-08-11] MEDS: MULTIVITAMINS/MINERALS THERAP 1 TAB PO SCH (08:45)
[2021-08-11] MEDS: DICLOFENAC EPOLAMINE 1.3 % PATCH TOP SCH ×2 (08:46→20:17)
[2021-08-11] MEDS: SERTRALINE HCL 50 MG TAB PO SCH (08:46)
[2021-08-11 18:18] VITALS: BP 136/63
[2021-08-11] MEDS: PRAVASTATIN 20 MG TAB PO SCH (20:18)
[2021-08-11] MEDS: PRAZOSIN 1 MG CAP PO SCH (20:18)
[2021-08-12] MEDS: LEVOTHYROXINE 137MCG TABLET (0.137MG) PO SCH (05:29)
[2021-08-12] MEDS: GLIMEPIRIDE 2 MG TAB PO SCH ×2 (06:18→17:10)
[2021-08-12 06:42] VITALS: BP 147/75
[2021-08-12] MEDS: ASPIRIN 81MG ENTERIC TABLET PO SCH (08:34)
[2021-08-12] MEDS: TOPIRAMATE (TopAMAX) 100 MG TAB PO SCH ×2 (08:34→20:39)
[2021-08-12] MEDS: DICLOFENAC EPOLAMINE 1.3 % PATCH TOP SCH ×2 (08:34→20:38)
[2021-08-12] MEDS: SERTRALINE HCL 50 MG TAB PO SCH (08:34)
[2021-08-12] MEDS: OMEPRAZOLE 20MG CAP PO SCH (08:34)
[2021-08-12] MEDS: buPROPion **XL** TABLET 150MG (WELLBUTRIN XL) PO SCH (08:35)
[2021-08-12] MEDS: MULTIVITAMINS/MINERALS THERAP 1 TAB PO SCH (08:35)
[2021-08-12] MEDS: FUROSEMIDE 40 MG TAB PO SCH (08:35)
[2021-08-12] MEDS: valACYclovir HCL 500 MG TAB PO SCH (08:35)
[2021-08-12 18:26] VITALS: BP 142/78
[2021-08-12] MEDS: PRAZOSIN 1 MG CAP PO SCH (20:39)
[2021-08-12] MEDS: PRAVASTATIN 20 MG TAB PO SCH (20:39)
[2021-08-13] MEDS: GLIMEPIRIDE 2 MG TAB PO SCH ×2 (06:40→17:15)
[2021-08-13] MEDS: LEVOTHYROXINE 137MCG TABLET (0.137MG) PO SCH (06:40)
[2021-08-13 06:48] VITALS: BP 164/84
[2021-08-13] MEDS: FLUTICASONE PROP 0.05% NASAL SPRAY 16 GM (FLONASE) NARES SCH ×2 (09:00→20:13)
[2021-08-13] MEDS: DICLOFENAC EPOLAMINE 1.3 % PATCH TOP SCH ×3 (09:00→20:15)
[2021-08-13 09:22] VITALS: BP 140/90
[2021-08-13] MEDS: MULTIVITAMINS/MINERALS THERAP 1 TAB PO SCH (09:30)
[2021-08-13] MEDS: valACYclovir HCL 500 MG TAB PO SCH (09:30)
[2021-08-13] MEDS: OMEPRAZOLE 20MG CAP PO SCH (09:31)
[2021-08-13] MEDS: FUROSEMIDE 40 MG TAB PO SCH (09:31)
[2021-08-13] MEDS: SERTRALINE HCL 50 MG TAB PO SCH (09:31)
[2021-08-13] MEDS: ASPIRIN 81MG ENTERIC TABLET PO SCH (09:31)
[2021-08-13] MEDS: TOPIRAMATE (TopAMAX) 100 MG TAB PO SCH ×2 (09:31→20:14)
[2021-08-13] MEDS: buPROPion **XL** TABLET 150MG (WELLBUTRIN XL) PO SCH (09:31)
[2021-08-13 16:17] VITALS: BP 137/74
[2021-08-13] MEDS: PRAZOSIN 1 MG CAP PO SCH (20:14)
[2021-08-13] MEDS: PRAVASTATIN 20 MG TAB PO SCH (20:15)
[2021-08-14 06:07] VITALS: BP 142/57
[2021-08-14] MEDS: GLIMEPIRIDE 2 MG TAB PO SCH ×2 (06:31→17:12)
[2021-08-14] MEDS: LEVOTHYROXINE 137MCG TABLET (0.137MG) PO SCH (06:31)
[2021-08-14] MEDS: FLUTICASONE PROP 0.05% NASAL SPRAY 16 GM (FLONASE) NARES SCH ×2 (09:03→20:45)
[2021-08-14] MEDS: buPROPion **XL** TABLET 150MG (WELLBUTRIN XL) PO SCH (09:03)
[2021-08-14] MEDS: TOPIRAMATE (TopAMAX) 100 MG TAB PO SCH ×2 (09:03→20:45)
[2021-08-14] MEDS: ASPIRIN 81MG ENTERIC TABLET PO SCH (09:03)
[2021-08-14] MEDS: OMEPRAZOLE 20MG CAP PO SCH (09:04)
[2021-08-14] MEDS: MULTIVITAMINS/MINERALS THERAP 1 TAB PO SCH (09:05)
[2021-08-14] MEDS: FUROSEMIDE 40 MG TAB PO SCH (09:05)
[2021-08-14] MEDS: SERTRALINE HCL 25 MG TABLET PO SCH (09:06)
[2021-08-14] MEDS: DICLOFENAC EPOLAMINE 1.3 % PATCH TOP SCH ×2 (09:06→20:44)
[2021-08-14] MEDS: valACYclovir HCL 500 MG TAB PO SCH (09:06)
[2021-08-14 17:20] VITALS: BP 136/63
[2021-08-14] MEDS: PRAZOSIN 1 MG CAP PO SCH (20:45)
[2021-08-14] MEDS: PRAVASTATIN 20 MG TAB PO SCH (20:46)
[2021-08-15 06:19] VITALS: BP 142/82
[2021-08-15] MEDS: LEVOTHYROXINE 137MCG TABLET (0.137MG) PO SCH (06:39)
[2021-08-15] MEDS: GLIMEPIRIDE 2 MG TAB PO SCH ×2 (06:39→17:06)
[2021-08-15] MEDS: valACYclovir HCL 500 MG TAB PO SCH (08:32)
[2021-08-15] MEDS: SERTRALINE HCL 25 MG TABLET PO SCH (08:32)
[2021-08-15] MEDS: FLUTICASONE PROP 0.05% NASAL SPRAY 16 GM (FLONASE) NARES SCH ×2 (08:32→20:34)
[2021-08-15] MEDS: FUROSEMIDE 40 MG TAB PO SCH (08:32)
[2021-08-15] MEDS: ASPIRIN 81MG ENTERIC TABLET PO SCH (08:32)
[2021-08-15] MEDS: MULTIVITAMINS/MINERALS THERAP 1 TAB PO SCH (08:33)
[2021-08-15] MEDS: OMEPRAZOLE 20MG CAP PO SCH (08:33)
[2021-08-15] MEDS: buPROPion **XL** TABLET 150MG (WELLBUTRIN XL) PO SCH (08:33)
[2021-08-15] MEDS: TOPIRAMATE (TopAMAX) 100 MG TAB PO SCH ×2 (08:33→20:34)
[2021-08-15] MEDS: ACETAMINOPHEN TAB 650MG DOSE (2X325MG) PO PRN (08:36)
[2021-08-15] MEDS: DICLOFENAC EPOLAMINE 1.3 % PATCH TOP SCH ×2 (11:13→20:34)
[2021-08-15 17:34] VITALS: BP 145/85
[2021-08-15] MEDS: PRAVASTATIN 20 MG TAB PO SCH (20:34)
[2021-08-15] MEDS: PRAZOSIN 1 MG CAP PO SCH (20:39)
[2021-08-16] MEDS: LEVOTHYROXINE 137MCG TABLET (0.137MG) PO SCH (06:30)
[2021-08-16] MEDS: GLIMEPIRIDE 2 MG TAB PO SCH ×2 (06:30→17:10)
[2021-08-16 06:42] VITALS: BP 137/76
[2021-08-16] MEDS: FUROSEMIDE 40 MG TAB PO SCH (08:47)
[2021-08-16] MEDS: FLUTICASONE PROP 0.05% NASAL SPRAY 16 GM (FLONASE) NARES SCH ×2 (08:47→22:39)
[2021-08-16] MEDS: valACYclovir HCL 500 MG TAB PO SCH (08:47)
[2021-08-16] MEDS: SERTRALINE HCL 25 MG TABLET PO SCH (08:48)
[2021-08-16] MEDS: ASPIRIN 81MG ENTERIC TABLET PO SCH (08:49)
[2021-08-16] MEDS: OMEPRAZOLE 20MG CAP PO SCH (08:49)
[2021-08-16] MEDS: MULTIVITAMINS/MINERALS THERAP 1 TAB PO SCH (08:49)
[2021-08-16] MEDS: buPROPion **XL** TABLET 150MG (WELLBUTRIN XL) PO SCH (08:50)
[2021-08-16] MEDS: TOPIRAMATE (TopAMAX) 100 MG TAB PO SCH ×2 (08:51→22:39)
[2021-08-16] MEDS: DICLOFENAC EPOLAMINE 1.3 % PATCH TOP SCH ×2 (08:51→22:39)
[2021-08-16] MEDS: ACETAMINOPHEN TAB 650MG DOSE (2X325MG) PO PRN (14:28)
[2021-08-16 18:00] VITALS: BP 143/72
[2021-08-16] MEDS: PRAZOSIN 1 MG CAP PO SCH (21:00)
[2021-08-16] MEDS: PRAVASTATIN 20 MG TAB PO SCH (22:39)
[2021-08-17 06:00] VITALS: BP 133/94
[2021-08-17] MEDS: LEVOTHYROXINE 137MCG TABLET (0.137MG) PO SCH (06:01)
[2021-08-17] MEDS: TOPIRAMATE (TopAMAX) 100 MG TAB PO SCH ×2 (09:41→20:07)
[2021-08-17] MEDS: valACYclovir HCL 500 MG TAB PO SCH (09:41)
[2021-08-17] MEDS: FUROSEMIDE 40 MG TAB PO SCH (09:41)
[2021-08-17] MEDS: ASPIRIN 81MG ENTERIC TABLET PO SCH (09:42)
[2021-08-17] MEDS: OMEPRAZOLE 20MG CAP PO SCH (09:42)
[2021-08-17] MEDS: buPROPion **XL** TABLET 150MG (WELLBUTRIN XL) PO SCH (09:42)
[2021-08-17] MEDS: MULTIVITAMINS/MINERALS THERAP 1 TAB PO SCH (09:42)
[2021-08-17] MEDS: SERTRALINE HCL 25 MG TABLET PO SCH (09:43)
[2021-08-17] MEDS: GLIMEPIRIDE 2 MG TAB PO SCH ×2 (09:45→16:50)
[2021-08-17] MEDS: FLUTICASONE PROP 0.05% NASAL SPRAY 16 GM (FLONASE) NARES SCH ×2 (09:45→20:06)
[2021-08-17] MEDS: DICLOFENAC EPOLAMINE 1.3 % PATCH TOP SCH ×2 (11:20→20:07)
[2021-08-17] MEDS: IBUPROFEN 600MG TAB PO PRN (17:13)
[2021-08-17 18:00] VITALS: BP 132/81
[2021-08-17] MEDS: PRAVASTATIN 20 MG TAB PO SCH (20:07)
[2021-08-17] MEDS: PRAZOSIN 1 MG CAP PO SCH (20:08)
[2021-08-18] MEDS: LEVOTHYROXINE 137MCG TABLET (0.137MG) PO SCH (06:33)
[2021-08-18] MEDS: GLIMEPIRIDE 2 MG TAB PO SCH ×2 (06:34→17:27)
[2021-08-18 06:42] VITALS: BP 154/79
[2021-08-18] MEDS: valACYclovir HCL 500 MG TAB PO SCH (08:42)
[2021-08-18] MEDS: buPROPion **XL** TABLET 150MG (WELLBUTRIN XL) PO SCH (08:43)
[2021-08-18] MEDS: ASPIRIN 81MG ENTERIC TABLET PO SCH (08:43)
[2021-08-18] MEDS: MULTIVITAMINS/MINERALS THERAP 1 TAB PO SCH (08:43)
[2021-08-18] MEDS: OMEPRAZOLE 20MG CAP PO SCH (08:43)
[2021-08-18] MEDS: TOPIRAMATE (TopAMAX) 100 MG TAB PO SCH ×2 (08:43→20:17)
[2021-08-18] MEDS: SERTRALINE 100 MG TAB PO SCH (08:44)
[2021-08-18] MEDS: FLUTICASONE PROP 0.05% NASAL SPRAY 16 GM (FLONASE) NARES SCH ×2 (08:44→20:12)
[2021-08-18] MEDS: FUROSEMIDE 40 MG TAB PO SCH (08:45)
[2021-08-18] MEDS: DICLOFENAC EPOLAMINE 1.3 % PATCH TOP SCH ×2 (08:46→20:12)
[2021-08-18 12:13] VITALS: BP 154/79
[2021-08-18] MEDS: ACETAMINOPHEN TAB 650MG DOSE (2X325MG) PO PRN (12:19)
[2021-08-18] MEDS: IBUPROFEN 600MG TAB PO PRN (15:53)
[2021-08-18 15:58] VITALS: BP 150/91
[2021-08-18] MEDS: PRAVASTATIN 20 MG TAB PO SCH (20:17)
[2021-08-18] MEDS: PRAZOSIN 1 MG CAP PO SCH (20:18)
[2021-08-19 06:01] VITALS: BP 141/81
[2021-08-19] MEDS: GLIMEPIRIDE 2 MG TAB PO SCH ×2 (06:34→20:15)
[2021-08-19] MEDS: LEVOTHYROXINE 137MCG TABLET (0.137MG) PO SCH (06:34)
[2021-08-19] MEDS: FLUTICASONE PROP 0.05% NASAL SPRAY 16 GM (FLONASE) NARES SCH ×2 (08:47→20:14)
[2021-08-19] MEDS: FUROSEMIDE 40 MG TAB PO SCH (08:48)
[2021-08-19] MEDS: DICLOFENAC EPOLAMINE 1.3 % PATCH TOP SCH ×2 (08:48→20:14)
[2021-08-19] MEDS: OMEPRAZOLE 20MG CAP PO SCH (08:48)
[2021-08-19] MEDS: valACYclovir HCL 500 MG TAB PO SCH (08:49)
[2021-08-19] MEDS: ASPIRIN 81MG ENTERIC TABLET PO SCH (08:49)
[2021-08-19] MEDS: buPROPion **XL** TABLET 150MG (WELLBUTRIN XL) PO SCH (08:49)
[2021-08-19] MEDS: SERTRALINE 100 MG TAB PO SCH (08:49)
[2021-08-19] MEDS: TOPIRAMATE (TopAMAX) 100 MG TAB PO SCH ×2 (08:52→20:15)
[2021-08-19] MEDS: MULTIVITAMINS/MINERALS THERAP 1 TAB PO SCH (08:53)
[2021-08-19 15:30] VITALS: BP 126/76
[2021-08-19] MEDS: PRAVASTATIN 20 MG TAB PO SCH (20:14)
[2021-08-19] MEDS: PRAZOSIN 1 MG CAP PO SCH (20:15)
[2021-08-19] MEDS: ACETAMINOPHEN TAB 650MG DOSE (2X325MG) PO PRN (20:16)
[2021-08-20 06:22] VITALS: BP 153/85
[2021-08-20] MEDS: GLIMEPIRIDE 2 MG TAB PO SCH ×2 (06:34→17:32)
[2021-08-20] MEDS: LEVOTHYROXINE 137MCG TABLET (0.137MG) PO SCH (06:34)
[2021-08-20] MEDS: valACYclovir HCL 500 MG TAB PO SCH (09:19)
[2021-08-20] MEDS: MULTIVITAMINS/MINERALS THERAP 1 TAB PO SCH (09:19)
[2021-08-20] MEDS: ASPIRIN 81MG ENTERIC TABLET PO SCH (09:19)
[2021-08-20] MEDS: FUROSEMIDE 40 MG TAB PO SCH (09:19)
[2021-08-20] MEDS: TOPIRAMATE (TopAMAX) 100 MG TAB PO SCH ×2 (09:19→21:18)
[2021-08-20] MEDS: SERTRALINE 100 MG TAB PO SCH (09:19)
[2021-08-20] MEDS: FLUTICASONE PROP 0.05% NASAL SPRAY 16 GM (FLONASE) NARES SCH ×2 (09:19→21:17)
[2021-08-20] MEDS: buPROPion **XL** TABLET 150MG (WELLBUTRIN XL) PO SCH (09:20)
[2021-08-20] MEDS: OMEPRAZOLE 20MG CAP PO SCH (09:20)
[2021-08-20] MEDS: DICLOFENAC EPOLAMINE 1.3 % PATCH TOP SCH ×2 (09:21→21:18)
[2021-08-20 19:16] VITALS: BP 145/75
[2021-08-20] MEDS: ACETAMINOPHEN TAB 650MG DOSE (2X325MG) PO PRN (19:19)
[2021-08-20] MEDS: PRAZOSIN 1 MG CAP PO SCH (21:18)
[2021-08-20] MEDS: PRAVASTATIN 20 MG TAB PO SCH (21:18)
[2021-08-21] MEDS: LEVOTHYROXINE 137MCG TABLET (0.137MG) PO SCH (06:52)
[2021-08-21] MEDS: GLIMEPIRIDE 2 MG TAB PO SCH ×2 (06:53→17:18)
[2021-08-21 07:04] VITALS: BP 137/78
[2021-08-21] MEDS: FLUTICASONE PROP 0.05% NASAL SPRAY 16 GM (FLONASE) NARES SCH ×2 (08:55→20:25)
[2021-08-21] MEDS: TOPIRAMATE (TopAMAX) 100 MG TAB PO SCH ×2 (08:56→20:26)
[2021-08-21] MEDS: valACYclovir HCL 500 MG TAB PO SCH (08:57)
[2021-08-21] MEDS: buPROPion **XL** TABLET 150MG (WELLBUTRIN XL) PO SCH (08:59)
[2021-08-21] MEDS: ASPIRIN 81MG ENTERIC TABLET PO SCH (08:59)
[2021-08-21] MEDS: SERTRALINE 100 MG TAB PO SCH (08:59)
[2021-08-21] MEDS: FUROSEMIDE 40 MG TAB PO SCH (08:59)
[2021-08-21] MEDS: MULTIVITAMINS/MINERALS THERAP 1 TAB PO SCH (08:59)
[2021-08-21] MEDS: OMEPRAZOLE 20MG CAP PO SCH (09:00)
[2021-08-21] MEDS: DICLOFENAC EPOLAMINE 1.3 % PATCH TOP SCH ×2 (09:01→20:25)
[2021-08-21] MEDS ORDERED: TUBERCULIN PPD 5 UNITS/0.1 ML ID ONE ×2 (10:00)
[2021-08-21 19:13] VITALS: BP 145/85
[2021-08-21] MEDS: PRAZOSIN 1 MG CAP PO SCH (20:25)
[2021-08-21] MEDS: PRAVASTATIN 20 MG TAB PO SCH (20:25)
[2021-08-22 06:33] VITALS: BP 139/94
[2021-08-22] MEDS: LEVOTHYROXINE 137MCG TABLET (0.137MG) PO SCH (06:36)
[2021-08-22] MEDS: GLIMEPIRIDE 2 MG TAB PO SCH ×2 (06:36→16:56)
[2021-08-22] MEDS: TOPIRAMATE (TopAMAX) 100 MG TAB PO SCH ×3 (09:00→21:05)
[2021-08-22] MEDS: MULTIVITAMINS/MINERALS THERAP 1 TAB PO SCH (09:20)
[2021-08-22] MEDS: FLUTICASONE PROP 0.05% NASAL SPRAY 16 GM (FLONASE) NARES SCH ×2 (09:20→21:00)
[2021-08-22] MEDS: DICLOFENAC EPOLAMINE 1.3 % PATCH TOP SCH ×2 (09:21→21:05)
[2021-08-22] MEDS: OMEPRAZOLE 20MG CAP PO SCH (09:21)
[2021-08-22] MEDS: valACYclovir HCL 500 MG TAB PO SCH (09:21)
[2021-08-22] MEDS: ASPIRIN 81MG ENTERIC TABLET PO SCH (09:21)
[2021-08-22] MEDS: FUROSEMIDE 40 MG TAB PO SCH (09:21)
[2021-08-22] MEDS: buPROPion **XL** TABLET 150MG (WELLBUTRIN XL) PO SCH (09:21)
[2021-08-22] MEDS: SERTRALINE 100 MG TAB PO SCH (09:21)
[2021-08-22] MEDS: IBUPROFEN 600MG TAB PO PRN (09:25)
[2021-08-22] MEDS ORDERED: PPD DOCUMENTATION ENTRY MISC XX SCH (10:00)
[2021-08-22 14:01] VITALS: BP 142/93
[2021-08-22 17:51] VITALS: BP 142/93
[2021-08-22] MEDS: ACETAMINOPHEN TAB 650MG DOSE (2X325MG) PO PRN (18:35)
[2021-08-22] MEDS: PRAVASTATIN 20 MG TAB PO SCH (21:00)
[2021-08-22] MEDS: PRAZOSIN 1 MG CAP PO SCH (21:05)
[2021-08-23 06:12] VITALS: BP 165/78
[2021-08-23] MEDS: GLIMEPIRIDE 2 MG TAB PO SCH ×2 (07:01→17:18)
[2021-08-23] MEDS: LEVOTHYROXINE 137MCG TABLET (0.137MG) PO SCH (07:01)
[2021-08-23] MEDS: SERTRALINE 100 MG TAB PO SCH (08:01)
[2021-08-23] MEDS: FUROSEMIDE 40 MG TAB PO SCH (08:01)
[2021-08-23] MEDS: OMEPRAZOLE 20MG CAP PO SCH (08:02)
[2021-08-23] MEDS: MULTIVITAMINS/MINERALS THERAP 1 TAB PO SCH (08:02)
[2021-08-23] MEDS: buPROPion **XL** TABLET 150MG (WELLBUTRIN XL) PO SCH (08:02)
[2021-08-23] MEDS: ASPIRIN 81MG ENTERIC TABLET PO SCH (08:02)
[2021-08-23] MEDS: FLUTICASONE PROP 0.05% NASAL SPRAY 16 GM (FLONASE) NARES SCH ×2 (08:04→21:14)
[2021-08-23] MEDS: TOPIRAMATE (TopAMAX) 100 MG TAB PO SCH ×2 (08:04→21:11)
[2021-08-23] MEDS: DICLOFENAC EPOLAMINE 1.3 % PATCH TOP SCH ×2 (08:04→21:11)
[2021-08-23] MEDS: valACYclovir HCL 500 MG TAB PO SCH (09:54)
[2021-08-23] MEDS ORDERED: PPD DOCUMENTATION ENTRY MISC XX ONE (10:00)
[2021-08-23] MEDS ORDERED: LOPERAMIDE 2 MG CAPLET PO PRN (11:30)
[2021-08-23 18:08] VITALS: BP 132/92
[2021-08-23] MEDS: PRAVASTATIN 20 MG TAB PO SCH (21:00)
[2021-08-23] MEDS: PRAZOSIN 1 MG CAP PO SCH (21:13)
[2021-08-24] MEDS: LEVOTHYROXINE 137MCG TABLET (0.137MG) PO SCH (05:42)
[2021-08-24 06:36] VITALS: BP 138/82
[2021-08-24] MEDS: GLIMEPIRIDE 2 MG TAB PO SCH ×2 (07:01→16:50)
[2021-08-24] MEDS: FLUTICASONE PROP 0.05% NASAL SPRAY 16 GM (FLONASE) NARES SCH ×2 (09:24→21:35)
[2021-08-24] MEDS: SERTRALINE 100 MG TAB PO SCH (09:24)
[2021-08-24] MEDS: FUROSEMIDE 40 MG TAB PO SCH (09:24)
[2021-08-24] MEDS: valACYclovir HCL 500 MG TAB PO SCH (09:24)
[2021-08-24] MEDS: TOPIRAMATE (TopAMAX) 100 MG TAB PO SCH ×2 (09:24→21:35)
[2021-08-24] MEDS: buPROPion **XL** TABLET 150MG (WELLBUTRIN XL) PO SCH (09:24)
[2021-08-24] MEDS: OMEPRAZOLE 20MG CAP PO SCH (09:25)
[2021-08-24] MEDS: ASPIRIN 81MG ENTERIC TABLET PO SCH (09:25)
[2021-08-24] MEDS: MULTIVITAMINS/MINERALS THERAP 1 TAB PO SCH (09:25)
[2021-08-24] MEDS: DICLOFENAC EPOLAMINE 1.3 % PATCH TOP SCH ×2 (09:51→21:36)
[2021-08-24] MEDS ORDERED: HALOPERIDOL DECANOATE 100 MG/ML VIAL (J1631) IM ONE (11:55)
[2021-08-24 18:00] VITALS: BP 131/81
[2021-08-24] MEDS: PRAVASTATIN 20 MG TAB PO SCH (21:36)
[2021-08-24] MEDS: PRAZOSIN 1 MG CAP PO SCH (21:36)
[2021-08-25] MEDS: LEVOTHYROXINE 137MCG TABLET (0.137MG) PO SCH (05:53)
[2021-08-25 06:00] VITALS: BP 158/82
[2021-08-25] MEDS: GLIMEPIRIDE 2 MG TAB PO SCH ×2 (07:10→17:35)
[2021-08-25] MEDS: ASPIRIN 81MG ENTERIC TABLET PO SCH (09:23)
[2021-08-25] MEDS: MULTIVITAMINS/MINERALS THERAP 1 TAB PO SCH (09:23)
[2021-08-25] MEDS: OMEPRAZOLE 20MG CAP PO SCH (09:23)
[2021-08-25] MEDS: valACYclovir HCL 500 MG TAB PO SCH (09:23)
[2021-08-25] MEDS: SERTRALINE 100 MG TAB PO SCH (09:23)
[2021-08-25] MEDS: FUROSEMIDE 40 MG TAB PO SCH (09:23)
[2021-08-25] MEDS: buPROPion **XL** TABLET 150MG (WELLBUTRIN XL) PO SCH (09:24)
[2021-08-25] MEDS: FLUTICASONE PROP 0.05% NASAL SPRAY 16 GM (FLONASE) NARES SCH ×2 (09:24→20:26)
[2021-08-25] MEDS: TOPIRAMATE (TopAMAX) 100 MG TAB PO SCH ×2 (09:24→20:27)
[2021-08-25] MEDS: DICLOFENAC EPOLAMINE 1.3 % PATCH TOP SCH ×2 (09:25→20:26)
[2021-08-25 18:00] VITALS: BP 137/70
[2021-08-25] MEDS: PRAVASTATIN 20 MG TAB PO SCH (20:27)
[2021-08-25] MEDS: PRAZOSIN 1 MG CAP PO SCH (20:27)
[2021-08-25] MEDS: ACETAMINOPHEN TAB 650MG DOSE (2X325MG) PO PRN (20:30)
[2021-08-26] MEDS: GLIMEPIRIDE 2 MG TAB PO SCH ×2 (06:37→17:34)
[2021-08-26] MEDS: LEVOTHYROXINE 137MCG TABLET (0.137MG) PO SCH (06:37)
[2021-08-26 06:40] VITALS: BP 132/90
[2021-08-26] MEDS: TOPIRAMATE (TopAMAX) 100 MG TAB PO SCH ×2 (09:20→20:59)
[2021-08-26] MEDS: buPROPion **XL** TABLET 150MG (WELLBUTRIN XL) PO SCH (09:21)
[2021-08-26] MEDS: OMEPRAZOLE 20MG CAP PO SCH (09:21)
[2021-08-26] MEDS: SERTRALINE 100 MG TAB PO SCH (09:21)
[2021-08-26] MEDS: FUROSEMIDE 40 MG TAB PO SCH (09:21)
[2021-08-26] MEDS: ASPIRIN 81MG ENTERIC TABLET PO SCH (09:21)
[2021-08-26] MEDS: MULTIVITAMINS/MINERALS THERAP 1 TAB PO SCH (09:21)
[2021-08-26] MEDS: FLUTICASONE PROP 0.05% NASAL SPRAY 16 GM (FLONASE) NARES SCH ×2 (09:21→20:55)
[2021-08-26] MEDS: DICLOFENAC EPOLAMINE 1.3 % PATCH TOP SCH ×2 (09:21→20:59)
[2021-08-26] MEDS: valACYclovir HCL 500 MG TAB PO SCH (09:22)
[2021-08-26] MEDS: IBUPROFEN 600MG TAB PO PRN (17:34)
[2021-08-26 18:00] VITALS: BP 133/81
[2021-08-26] MEDS: PRAVASTATIN 20 MG TAB PO SCH (20:55)
[2021-08-26] MEDS: PRAZOSIN 1 MG CAP PO SCH (20:59)
[2021-08-27] MEDS: LEVOTHYROXINE 137MCG TABLET (0.137MG) PO SCH (05:08)
[2021-08-27 06:00] VITALS: BP 133/76
[2021-08-27] MEDS: FUROSEMIDE 40 MG TAB PO SCH (09:12)
[2021-08-27] MEDS: MULTIVITAMINS/MINERALS THERAP 1 TAB PO SCH (09:12)
[2021-08-27] MEDS: SERTRALINE HCL 50 MG TAB PO SCH (09:12)
[2021-08-27] MEDS: valACYclovir HCL 500 MG TAB PO SCH (09:12)
[2021-08-27] MEDS: FLUTICASONE PROP 0.05% NASAL SPRAY 16 GM (FLONASE) NARES SCH ×2 (09:12→20:29)
[2021-08-27] MEDS: DICLOFENAC EPOLAMINE 1.3 % PATCH TOP SCH ×2 (09:13→20:29)
[2021-08-27] MEDS: GLIMEPIRIDE 2 MG TAB PO SCH ×2 (09:13→17:37)
[2021-08-27] MEDS: OMEPRAZOLE 20MG CAP PO SCH (09:13)
[2021-08-27] MEDS: TOPIRAMATE (TopAMAX) 100 MG TAB PO SCH ×2 (09:13→20:30)
[2021-08-27] MEDS: buPROPion **XL** TABLET 150MG (WELLBUTRIN XL) PO SCH (09:13)
[2021-08-27] MEDS: ASPIRIN 81MG ENTERIC TABLET PO SCH (09:13)
[2021-08-27] MEDS: IBUPROFEN 600MG TAB PO PRN (11:26)
[2021-08-27] MEDS ORDERED: ANALGESIC BALM CRM 3OZ TOP PRN (17:50)
[2021-08-27 18:00] VITALS: BP 128/76
[2021-08-27] MEDS: LIDOCAINE 5% (LIDODERM) PATCH TD SCH (18:17)
[2021-08-27] MEDS: PRAZOSIN 1 MG CAP PO SCH (20:29)
[2021-08-27] MEDS: PRAVASTATIN 20 MG TAB PO SCH (20:30)
[2021-08-27] MEDS: **NOTE PATIENT COMMENT** MISC XX SCH (20:34)
[2021-08-28 06:18] VITALS: BP 126/85
[2021-08-28] MEDS: GLIMEPIRIDE 2 MG TAB PO SCH ×2 (06:31→16:36)
[2021-08-28] MEDS: LEVOTHYROXINE 137MCG TABLET (0.137MG) PO SCH (06:31)
[2021-08-28] MEDS: valACYclovir HCL 500 MG TAB PO SCH (08:24)
[2021-08-28] MEDS: MULTIVITAMINS/MINERALS THERAP 1 TAB PO SCH (08:24)
[2021-08-28] MEDS: FUROSEMIDE 40 MG TAB PO SCH (08:24)
[2021-08-28] MEDS: SERTRALINE HCL 50 MG TAB PO SCH (08:24)
[2021-08-28] MEDS: OMEPRAZOLE 20MG CAP PO SCH (08:25)
[2021-08-28] MEDS: ASPIRIN 81MG ENTERIC TABLET PO SCH (08:26)
[2021-08-28] MEDS: buPROPion **XL** TABLET 150MG (WELLBUTRIN XL) PO SCH (08:26)
[2021-08-28] MEDS: LIDOCAINE 5% (LIDODERM) PATCH TD SCH (08:27)
[2021-08-28] MEDS: DICLOFENAC EPOLAMINE 1.3 % PATCH TOP SCH ×2 (08:27→21:13)
[2021-08-28] MEDS: FLUTICASONE PROP 0.05% NASAL SPRAY 16 GM (FLONASE) NARES SCH ×2 (08:27→21:13)
[2021-08-28] MEDS: TOPIRAMATE (TopAMAX) 100 MG TAB PO SCH ×2 (08:27→21:13)
[2021-08-28] MEDS: IBUPROFEN 600MG TAB PO PRN (16:35)
[2021-08-28 18:00] VITALS: BP 145/81
[2021-08-28] MEDS: PRAVASTATIN 20 MG TAB PO SCH (21:12)
[2021-08-28] MEDS: PRAZOSIN 1 MG CAP PO SCH (21:12)
[2021-08-28] MEDS: **NOTE PATIENT COMMENT** MISC XX SCH (21:15)
[2021-08-29 06:21] VITALS: BP 128/59
[2021-08-29] MEDS: LEVOTHYROXINE 137MCG TABLET (0.137MG) PO SCH (06:32)
[2021-08-29] MEDS: GLIMEPIRIDE 2 MG TAB PO SCH ×2 (06:33→17:08)
[2021-08-29] MEDS: FLUTICASONE PROP 0.05% NASAL SPRAY 16 GM (FLONASE) NARES SCH ×2 (08:34→21:29)
[2021-08-29] MEDS: IBUPROFEN 600MG TAB PO PRN (08:35)
[2021-08-29] MEDS: FUROSEMIDE 40 MG TAB PO SCH (08:36)
[2021-08-29] MEDS: TOPIRAMATE (TopAMAX) 100 MG TAB PO SCH ×2 (08:36→21:28)
[2021-08-29] MEDS: valACYclovir HCL 500 MG TAB PO SCH (08:36)
[2021-08-29] MEDS: buPROPion **XL** TABLET 150MG (WELLBUTRIN XL) PO SCH (08:36)
[2021-08-29] MEDS: ASPIRIN 81MG ENTERIC TABLET PO SCH (08:36)
[2021-08-29] MEDS: MULTIVITAMINS/MINERALS THERAP 1 TAB PO SCH (08:36)
[2021-08-29] MEDS: OMEPRAZOLE 20MG CAP PO SCH (08:36)
[2021-08-29] MEDS: SERTRALINE HCL 50 MG TAB PO SCH (08:37)
[2021-08-29] MEDS: LIDOCAINE 5% (LIDODERM) PATCH TD SCH (08:37)
[2021-08-29] MEDS: DICLOFENAC EPOLAMINE 1.3 % PATCH TOP SCH ×2 (09:52→21:29)
[2021-08-29] MEDS: ACETAMINOPHEN TAB 650MG DOSE (2X325MG) PO PRN (15:05)
[2021-08-29 17:25] VITALS: BP 138/77
[2021-08-29] MEDS: PRAZOSIN 1 MG CAP PO SCH (21:27)
[2021-08-29] MEDS: PRAVASTATIN 20 MG TAB PO SCH (21:29)
[2021-08-29] MEDS: **NOTE PATIENT COMMENT** MISC XX SCH (21:34)
[2021-08-30] MEDS: GLIMEPIRIDE 2 MG TAB PO SCH ×2 (06:44→17:36)
[2021-08-30] MEDS: LEVOTHYROXINE 137MCG TABLET (0.137MG) PO SCH (06:44)
[2021-08-30 06:55] VITALS: BP 133/64
[2021-08-30] MEDS: LIDOCAINE 5% (LIDODERM) PATCH TD SCH (09:22)
[2021-08-30] MEDS: FLUTICASONE PROP 0.05% NASAL SPRAY 16 GM (FLONASE) NARES SCH ×2 (09:22→20:59)
[2021-08-30] MEDS: DICLOFENAC EPOLAMINE 1.3 % PATCH TOP SCH ×2 (09:22→20:59)
[2021-08-30] MEDS: valACYclovir HCL 500 MG TAB PO SCH (09:22)
[2021-08-30] MEDS: buPROPion **XL** TABLET 150MG (WELLBUTRIN XL) PO SCH (09:23)
[2021-08-30] MEDS: OMEPRAZOLE 20MG CAP PO SCH (09:23)
[2021-08-30] MEDS: SERTRALINE HCL 50 MG TAB PO SCH (09:23)
[2021-08-30] MEDS: FUROSEMIDE 40 MG TAB PO SCH (09:23)
[2021-08-30] MEDS: ASPIRIN 81MG ENTERIC TABLET PO SCH (09:23)
[2021-08-30] MEDS: MULTIVITAMINS/MINERALS THERAP 1 TAB PO SCH (09:23)
[2021-08-30] MEDS: TOPIRAMATE (TopAMAX) 100 MG TAB PO SCH ×2 (09:24→21:03)
[2021-08-30 17:44] VITALS: BP 134/91
[2021-08-30] MEDS: PRAVASTATIN 20 MG TAB PO SCH (21:03)
[2021-08-30] MEDS: PRAZOSIN 1 MG CAP PO SCH (21:03)
[2021-08-30] MEDS: **NOTE PATIENT COMMENT** MISC XX SCH (21:56)
[2021-08-31] MEDS: LEVOTHYROXINE 137MCG TABLET (0.137MG) PO SCH (06:05)
[2021-08-31] MEDS: GLIMEPIRIDE 2 MG TAB PO SCH ×2 (06:12→17:04)
[2021-08-31 07:08] VITALS: BP 124/82
[2021-08-31] MEDS: FLUTICASONE PROP 0.05% NASAL SPRAY 16 GM (FLONASE) NARES SCH ×2 (08:32→20:32)
[2021-08-31] MEDS: LIDOCAINE 5% (LIDODERM) PATCH TD SCH (08:32)
[2021-08-31] MEDS: TOPIRAMATE (TopAMAX) 100 MG TAB PO SCH ×2 (08:33→20:33)
[2021-08-31] MEDS: ASPIRIN 81MG ENTERIC TABLET PO SCH (08:33)
[2021-08-31] MEDS: DICLOFENAC EPOLAMINE 1.3 % PATCH TOP SCH ×2 (08:33→20:33)
[2021-08-31] MEDS: MULTIVITAMINS/MINERALS THERAP 1 TAB PO SCH (08:33)
[2021-08-31] MEDS: buPROPion **XL** TABLET 150MG (WELLBUTRIN XL) PO SCH (08:34)
[2021-08-31] MEDS: FUROSEMIDE 40 MG TAB PO SCH (08:34)
[2021-08-31] MEDS: valACYclovir HCL 500 MG TAB PO SCH (08:34)
[2021-08-31] MEDS: OMEPRAZOLE 20MG CAP PO SCH (08:34)
[2021-08-31] MEDS: SERTRALINE HCL 50 MG TAB PO SCH (08:35)
[2021-08-31 17:43] VITALS: BP 131/93
[2021-08-31] MEDS: PRAZOSIN 1 MG CAP PO SCH (20:32)
[2021-08-31] MEDS: PRAVASTATIN 20 MG TAB PO SCH (20:33)
[2021-08-31] MEDS: **NOTE PATIENT COMMENT** MISC XX SCH (21:00)
[2021-09-01 06:13] VITALS: BP 144/71
[2021-09-01] MEDS: GLIMEPIRIDE 2 MG TAB PO SCH ×2 (06:40→17:34)
[2021-09-01] MEDS: LEVOTHYROXINE 137MCG TABLET (0.137MG) PO SCH (06:40)
[2021-09-01] MEDS: LIDOCAINE 5% (LIDODERM) PATCH TD SCH (08:07)
[2021-09-01] MEDS: DICLOFENAC EPOLAMINE 1.3 % PATCH TOP SCH ×2 (08:08→20:36)
[2021-09-01] MEDS: FLUTICASONE PROP 0.05% NASAL SPRAY 16 GM (FLONASE) NARES SCH ×2 (08:08→20:36)
[2021-09-01] MEDS: ASPIRIN 81MG ENTERIC TABLET PO SCH (08:10)
[2021-09-01] MEDS: TOPIRAMATE (TopAMAX) 100 MG TAB PO SCH ×2 (08:10→20:37)
[2021-09-01] MEDS: SERTRALINE HCL 50 MG TAB PO SCH (08:11)
[2021-09-01] MEDS: valACYclovir HCL 500 MG TAB PO SCH (08:11)
[2021-09-01] MEDS: OMEPRAZOLE 20MG CAP PO SCH (08:11)
[2021-09-01] MEDS: FUROSEMIDE 40 MG TAB PO SCH (08:12)
[2021-09-01] MEDS: MULTIVITAMINS/MINERALS THERAP 1 TAB PO SCH (08:12)
[2021-09-01] MEDS: buPROPion **XL** TABLET 150MG (WELLBUTRIN XL) PO SCH (08:12)
[2021-09-01 18:28] VITALS: BP 129/65
[2021-09-01] MEDS: PRAVASTATIN 20 MG TAB PO SCH (20:36)
[2021-09-01] MEDS: PRAZOSIN 1 MG CAP PO SCH (20:37)
[2021-09-01] MEDS: **NOTE PATIENT COMMENT** MISC XX SCH (20:37)
[2021-09-01] MEDS: IBUPROFEN 600MG TAB PO PRN (20:58)
[2021-09-02 06:24] VITALS: BP 143/68
[2021-09-02] MEDS: LEVOTHYROXINE 137MCG TABLET (0.137MG) PO SCH (06:38)
[2021-09-02] MEDS: GLIMEPIRIDE 2 MG TAB PO SCH ×2 (06:38→16:56)
[2021-09-02] MEDS: LIDOCAINE 5% (LIDODERM) PATCH TD SCH (10:03)
[2021-09-02] MEDS: FLUTICASONE PROP 0.05% NASAL SPRAY 16 GM (FLONASE) NARES SCH ×2 (10:03→20:40)
[2021-09-02] MEDS: ASPIRIN 81MG ENTERIC TABLET PO SCH (10:04)
[2021-09-02] MEDS: DICLOFENAC EPOLAMINE 1.3 % PATCH TOP SCH ×2 (10:04→20:40)
[2021-09-02] MEDS: FUROSEMIDE 40 MG TAB PO SCH (10:05)
[2021-09-02] MEDS: SERTRALINE HCL 50 MG TAB PO SCH (10:05)
[2021-09-02] MEDS: OMEPRAZOLE 20MG CAP PO SCH (10:05)
[2021-09-02] MEDS: valACYclovir HCL 500 MG TAB PO SCH (10:05)
[2021-09-02] MEDS: MULTIVITAMINS/MINERALS THERAP 1 TAB PO SCH (10:05)
[2021-09-02] MEDS: buPROPion **XL** TABLET 150MG (WELLBUTRIN XL) PO SCH (10:06)
[2021-09-02] MEDS: TOPIRAMATE (TopAMAX) 100 MG TAB PO SCH ×2 (10:06→20:40)
[2021-09-02 10:11] VITALS: BP 132/86
[2021-09-02 18:41] VITALS: BP 125/74
[2021-09-02] MEDS: PRAVASTATIN 20 MG TAB PO SCH (20:41)
[2021-09-02] MEDS: PRAZOSIN 1 MG CAP PO SCH (20:41)
[2021-09-02] MEDS: **NOTE PATIENT COMMENT** MISC XX SCH (20:42)
[2021-09-03 06:05] VITALS: BP 133/78
[2021-09-03] MEDS: GLIMEPIRIDE 2 MG TAB PO SCH ×2 (06:51→17:24)
[2021-09-03] MEDS: LEVOTHYROXINE 137MCG TABLET (0.137MG) PO SCH (06:51)
[2021-09-03] MEDS: LIDOCAINE 5% (LIDODERM) PATCH TD SCH (09:00)
[2021-09-03] MEDS: SERTRALINE HCL 50 MG TAB PO SCH (09:26)
[2021-09-03] MEDS: FLUTICASONE PROP 0.05% NASAL SPRAY 16 GM (FLONASE) NARES SCH ×2 (09:26→20:06)
[2021-09-03] MEDS: valACYclovir HCL 500 MG TAB PO SCH (09:26)
[2021-09-03] MEDS: FUROSEMIDE 40 MG TAB PO SCH (09:26)
[2021-09-03] MEDS: ASPIRIN 81MG ENTERIC TABLET PO SCH (09:27)
[2021-09-03] MEDS: buPROPion **XL** TABLET 150MG (WELLBUTRIN XL) PO SCH (09:27)
[2021-09-03] MEDS: OMEPRAZOLE 20MG CAP PO SCH (09:27)
[2021-09-03] MEDS: TOPIRAMATE (TopAMAX) 100 MG TAB PO SCH ×2 (09:27→20:07)
[2021-09-03] MEDS: MULTIVITAMINS/MINERALS THERAP 1 TAB PO SCH (09:27)
[2021-09-03] MEDS: DICLOFENAC EPOLAMINE 1.3 % PATCH TOP SCH ×2 (09:28→20:07)
[2021-09-03 17:50] VITALS: BP 130/89
[2021-09-03] MEDS: **NOTE PATIENT COMMENT** MISC XX SCH (20:03)
[2021-09-03] MEDS: PRAVASTATIN 20 MG TAB PO SCH (20:07)
[2021-09-03] MEDS: PRAZOSIN 1 MG CAP PO SCH (20:08)
[2021-09-04 06:20] VITALS: BP 138/71
[2021-09-04] MEDS: GLIMEPIRIDE 2 MG TAB PO SCH ×2 (06:40→17:26)
[2021-09-04] MEDS: LEVOTHYROXINE 137MCG TABLET (0.137MG) PO SCH (06:40)
[2021-09-04] MEDS: LIDOCAINE 5% (LIDODERM) PATCH TD SCH (09:00)
[2021-09-04] MEDS: SERTRALINE HCL 50 MG TAB PO SCH (09:16)
[2021-09-04] MEDS: ASPIRIN 81MG ENTERIC TABLET PO SCH (09:16)
[2021-09-04] MEDS: OMEPRAZOLE 20MG CAP PO SCH (09:16)
[2021-09-04] MEDS: valACYclovir HCL 500 MG TAB PO SCH (09:16)
[2021-09-04] MEDS: FUROSEMIDE 40 MG TAB PO SCH (09:16)
[2021-09-04] MEDS: buPROPion **XL** TABLET 150MG (WELLBUTRIN XL) PO SCH (09:16)
[2021-09-04] MEDS: FLUTICASONE PROP 0.05% NASAL SPRAY 16 GM (FLONASE) NARES SCH ×2 (09:17→21:36)
[2021-09-04] MEDS: MULTIVITAMINS/MINERALS THERAP 1 TAB PO SCH (09:17)
[2021-09-04] MEDS: TOPIRAMATE (TopAMAX) 100 MG TAB PO SCH ×2 (09:18→21:36)
[2021-09-04] MEDS: DICLOFENAC EPOLAMINE 1.3 % PATCH TOP SCH ×2 (09:18→21:36)
[2021-09-04] MEDS: ACETAMINOPHEN TAB 650MG DOSE (2X325MG) PO PRN (13:52)
[2021-09-04 18:00] VITALS: BP 132/83
[2021-09-04] MEDS: **NOTE PATIENT COMMENT** MISC XX SCH (21:00)
[2021-09-04] MEDS: PRAZOSIN 1 MG CAP PO SCH (21:36)
[2021-09-04] MEDS: PRAVASTATIN 20 MG TAB PO SCH (21:36)
[2021-09-05] MEDS: LEVOTHYROXINE 137MCG TABLET (0.137MG) PO SCH (06:16)
[2021-09-05] MEDS: GLIMEPIRIDE 2 MG TAB PO SCH ×2 (06:17→18:36)
[2021-09-05 06:52] VITALS: BP 142/80
[2021-09-05] MEDS: MULTIVITAMINS/MINERALS THERAP 1 TAB PO SCH (08:52)
[2021-09-05] MEDS: valACYclovir HCL 500 MG TAB PO SCH (08:53)
[2021-09-05] MEDS: FUROSEMIDE 40 MG TAB PO SCH (08:53)
[2021-09-05] MEDS: ASPIRIN 81MG ENTERIC TABLET PO SCH (08:53)
[2021-09-05] MEDS: buPROPion **XL** TABLET 150MG (WELLBUTRIN XL) PO SCH (08:53)
[2021-09-05] MEDS: FLUTICASONE PROP 0.05% NASAL SPRAY 16 GM (FLONASE) NARES SCH ×2 (08:53→21:16)
[2021-09-05] MEDS: TOPIRAMATE (TopAMAX) 100 MG TAB PO SCH ×2 (08:54→21:17)
[2021-09-05] MEDS: SERTRALINE HCL 50 MG TAB PO SCH (08:54)
[2021-09-05] MEDS: OMEPRAZOLE 20MG CAP PO SCH (08:54)
[2021-09-05] MEDS: DICLOFENAC EPOLAMINE 1.3 % PATCH TOP SCH ×2 (08:55→21:17)
[2021-09-05] MEDS: LIDOCAINE 5% (LIDODERM) PATCH TD SCH (08:55)
[2021-09-05 18:00] VITALS: BP 126/68
[2021-09-05] MEDS: **NOTE PATIENT COMMENT** MISC XX SCH (21:00)
[2021-09-05] MEDS: PRAVASTATIN 20 MG TAB PO SCH (21:17)
[2021-09-05] MEDS: PRAZOSIN 1 MG CAP PO SCH (21:20)
[2021-09-06 06:28] VITALS: BP 137/87
[2021-09-06] MEDS: LEVOTHYROXINE 137MCG TABLET (0.137MG) PO SCH (06:47)
[2021-09-06] MEDS: GLIMEPIRIDE 2 MG TAB PO SCH ×2 (06:47→17:22)
[2021-09-06] MEDS: FLUTICASONE PROP 0.05% NASAL SPRAY 16 GM (FLONASE) NARES SCH ×2 (10:00→20:42)
[2021-09-06] MEDS: ASPIRIN 81MG ENTERIC TABLET PO SCH (10:00)
[2021-09-06] MEDS: buPROPion **XL** TABLET 150MG (WELLBUTRIN XL) PO SCH (10:01)
[2021-09-06] MEDS: TOPIRAMATE (TopAMAX) 100 MG TAB PO SCH ×2 (10:01→20:47)
[2021-09-06] MEDS: OMEPRAZOLE 20MG CAP PO SCH (10:01)
[2021-09-06] MEDS: SERTRALINE HCL 50 MG TAB PO SCH (10:01)
[2021-09-06] MEDS: MULTIVITAMINS/MINERALS THERAP 1 TAB PO SCH (10:02)
[2021-09-06] MEDS: valACYclovir HCL 500 MG TAB PO SCH (10:02)
[2021-09-06] MEDS: FUROSEMIDE 40 MG TAB PO SCH (10:02)
[2021-09-06] MEDS: LIDOCAINE 5% (LIDODERM) PATCH TD SCH (10:03)
[2021-09-06] MEDS: DICLOFENAC EPOLAMINE 1.3 % PATCH TOP SCH ×2 (10:04→20:48)
[2021-09-06] MEDS: IBUPROFEN 600MG TAB PO PRN (14:26)
[2021-09-06 18:14] VITALS: BP 124/78
[2021-09-06] MEDS: PRAZOSIN 1 MG CAP PO SCH (20:47)
[2021-09-06] MEDS: PRAVASTATIN 20 MG TAB PO SCH (20:48)
[2021-09-06] MEDS: ACETAMINOPHEN TAB 650MG DOSE (2X325MG) PO PRN (20:48)
[2021-09-06] MEDS: **NOTE PATIENT COMMENT** MISC XX SCH (20:55)
[2021-09-07] MEDS: IBUPROFEN 600MG TAB PO PRN (03:11)
[2021-09-07 06:25] VITALS: BP 155/57
[2021-09-07] MEDS: GLIMEPIRIDE 2 MG TAB PO SCH ×2 (06:36→17:02)
[2021-09-07] MEDS: LEVOTHYROXINE 137MCG TABLET (0.137MG) PO SCH (06:36)
[2021-09-07] MEDS: LIDOCAINE 5% (LIDODERM) PATCH TD SCH (09:00)
[2021-09-07] MEDS: FLUTICASONE PROP 0.05% NASAL SPRAY 16 GM (FLONASE) NARES SCH ×2 (09:00→21:22)
[2021-09-07] MEDS: SERTRALINE HCL 50 MG TAB PO SCH (09:28)
[2021-09-07] MEDS: TOPIRAMATE (TopAMAX) 100 MG TAB PO SCH ×2 (09:28→21:25)
[2021-09-07] MEDS: ASPIRIN 81MG ENTERIC TABLET PO SCH (09:29)
[2021-09-07] MEDS: MULTIVITAMINS/MINERALS THERAP 1 TAB PO SCH (09:30)
[2021-09-07] MEDS: OMEPRAZOLE 20MG CAP PO SCH (09:30)
[2021-09-07] MEDS: valACYclovir HCL 500 MG TAB PO SCH (09:31)
[2021-09-07] MEDS: buPROPion **XL** TABLET 150MG (WELLBUTRIN XL) PO SCH (09:31)
[2021-09-07] MEDS: FUROSEMIDE 40 MG TAB PO SCH (09:31)
[2021-09-07] MEDS: DICLOFENAC EPOLAMINE 1.3 % PATCH TOP SCH ×2 (09:32→21:23)
[2021-09-07 18:32] VITALS: BP 139/85
[2021-09-07] MEDS: **NOTE PATIENT COMMENT** MISC XX SCH (21:00)
[2021-09-07] MEDS: PRAVASTATIN 20 MG TAB PO SCH (21:24)
[2021-09-07] MEDS: PRAZOSIN 1 MG CAP PO SCH (21:25)
[2021-09-08] MEDS: LEVOTHYROXINE 137MCG TABLET (0.137MG) PO SCH (05:47)
[2021-09-08 06:37] VITALS: BP 125/78
[2021-09-08] MEDS: GLIMEPIRIDE 2 MG TAB PO SCH ×2 (06:37→17:29)
[2021-09-08] MEDS: FLUTICASONE PROP 0.05% NASAL SPRAY 16 GM (FLONASE) NARES SCH ×2 (08:50→20:29)
[2021-09-08] MEDS: MULTIVITAMINS/MINERALS THERAP 1 TAB PO SCH (08:50)
[2021-09-08] MEDS: buPROPion **XL** TABLET 150MG (WELLBUTRIN XL) PO SCH (08:51)
[2021-09-08] MEDS: ASPIRIN 81MG ENTERIC TABLET PO SCH (08:51)
[2021-09-08] MEDS: valACYclovir HCL 500 MG TAB PO SCH (08:52)
[2021-09-08] MEDS: SERTRALINE 100 MG TAB PO SCH (08:52)
[2021-09-08] MEDS: TOPIRAMATE (TopAMAX) 100 MG TAB PO SCH ×2 (08:52→20:30)
[2021-09-08] MEDS: FUROSEMIDE 40 MG TAB PO SCH (08:52)
[2021-09-08] MEDS: OMEPRAZOLE 20MG CAP PO SCH (08:52)
[2021-09-08] MEDS: DICLOFENAC EPOLAMINE 1.3 % PATCH TOP SCH ×2 (09:00→20:29)
[2021-09-08] MEDS: LIDOCAINE 5% (LIDODERM) PATCH TD SCH (09:00)
[2021-09-08 18:00] VITALS: BP 136/78
[2021-09-08] MEDS: PRAVASTATIN 20 MG TAB PO SCH (20:30)
[2021-09-08] MEDS: PRAZOSIN 1 MG CAP PO SCH (20:30)
[2021-09-08] MEDS: **NOTE PATIENT COMMENT** MISC XX SCH (20:30)
[2021-09-09] MEDS: LEVOTHYROXINE 137MCG TABLET (0.137MG) PO SCH (05:28)
[2021-09-09 06:35] VITALS: BP 120/76
[2021-09-09] MEDS: GLIMEPIRIDE 2 MG TAB PO SCH ×2 (06:36→17:43)
[2021-09-09] MEDS: FLUTICASONE PROP 0.05% NASAL SPRAY 16 GM (FLONASE) NARES SCH ×2 (08:07→20:28)
[2021-09-09] MEDS: valACYclovir HCL 500 MG TAB PO SCH (08:09)
[2021-09-09] MEDS: FUROSEMIDE 40 MG TAB PO SCH (08:09)
[2021-09-09] MEDS: MULTIVITAMINS/MINERALS THERAP 1 TAB PO SCH (08:11)
[2021-09-09] MEDS: buPROPion **XL** TABLET 150MG (WELLBUTRIN XL) PO SCH (08:11)
[2021-09-09] MEDS: ASPIRIN 81MG ENTERIC TABLET PO SCH (08:11)
[2021-09-09] MEDS: OMEPRAZOLE 20MG CAP PO SCH (08:12)
[2021-09-09] MEDS: TOPIRAMATE (TopAMAX) 100 MG TAB PO SCH ×2 (08:12→20:27)
[2021-09-09] MEDS: SERTRALINE 100 MG TAB PO SCH (08:12)
[2021-09-09] MEDS: LIDOCAINE 5% (LIDODERM) PATCH TD SCH (08:20)
[2021-09-09] MEDS: DICLOFENAC EPOLAMINE 1.3 % PATCH TOP SCH ×2 (08:20→20:27)
[2021-09-09 18:00] VITALS: BP 131/71
[2021-09-09] MEDS: PRAVASTATIN 20 MG TAB PO SCH (20:27)
[2021-09-09] MEDS: PRAZOSIN 1 MG CAP PO SCH (20:28)
[2021-09-09] MEDS: **NOTE PATIENT COMMENT** MISC XX SCH (20:30)
[2021-09-10] MEDS: LEVOTHYROXINE 137MCG TABLET (0.137MG) PO SCH (06:34)
[2021-09-10] MEDS: GLIMEPIRIDE 2 MG TAB PO SCH ×2 (06:34→17:38)
[2021-09-10 07:01] VITALS: BP 136/71
[2021-09-10 09:31] VITALS: BP 134/84
[2021-09-10] MEDS: MULTIVITAMINS/MINERALS THERAP 1 TAB PO SCH (09:36)
[2021-09-10] MEDS: SERTRALINE 100 MG TAB PO SCH (09:38)
[2021-09-10] MEDS: valACYclovir HCL 500 MG TAB PO SCH (09:38)
[2021-09-10] MEDS: TOPIRAMATE (TopAMAX) 100 MG TAB PO SCH ×2 (09:40→20:06)
[2021-09-10] MEDS: DICLOFENAC EPOLAMINE 1.3 % PATCH TOP SCH ×2 (09:40→20:05)
[2021-09-10] MEDS: FUROSEMIDE 40 MG TAB PO SCH (09:40)
[2021-09-10] MEDS: buPROPion **XL** TABLET 150MG (WELLBUTRIN XL) PO SCH (09:40)
[2021-09-10] MEDS: ASPIRIN 81MG ENTERIC TABLET PO SCH (09:40)
[2021-09-10] MEDS: OMEPRAZOLE 20MG CAP PO SCH (09:40)
[2021-09-10] MEDS: LIDOCAINE 5% (LIDODERM) PATCH TD SCH (09:41)
[2021-09-10] MEDS: FLUTICASONE PROP 0.05% NASAL SPRAY 16 GM (FLONASE) NARES SCH ×2 (09:41→19:58)
[2021-09-10 16:13] VITALS: BP 122/67
[2021-09-10] MEDS: **NOTE PATIENT COMMENT** MISC XX SCH (20:01)
[2021-09-10] MEDS: PRAVASTATIN 20 MG TAB PO SCH (20:05)
[2021-09-10] MEDS: PRAZOSIN 1 MG CAP PO SCH (20:06)
[2021-09-11 06:27] VITALS: BP 136/79
[2021-09-11] MEDS: LEVOTHYROXINE 137MCG TABLET (0.137MG) PO SCH (06:36)
[2021-09-11] MEDS: GLIMEPIRIDE 2 MG TAB PO SCH ×2 (06:36→17:41)
[2021-09-11] MEDS: TOPIRAMATE (TopAMAX) 100 MG TAB PO SCH ×2 (08:43→20:17)
[2021-09-11] MEDS: MULTIVITAMINS/MINERALS THERAP 1 TAB PO SCH (08:44)
[2021-09-11] MEDS: SERTRALINE 100 MG TAB PO SCH (08:44)
[2021-09-11] MEDS: valACYclovir HCL 500 MG TAB PO SCH (08:44)
[2021-09-11] MEDS: OMEPRAZOLE 20MG CAP PO SCH (08:44)
[2021-09-11] MEDS: ASPIRIN 81MG ENTERIC TABLET PO SCH (08:47)
[2021-09-11] MEDS: FUROSEMIDE 40 MG TAB PO SCH (08:47)
[2021-09-11] MEDS: buPROPion **XL** TABLET 150MG (WELLBUTRIN XL) PO SCH (08:47)
[2021-09-11] MEDS: DICLOFENAC EPOLAMINE 1.3 % PATCH TOP SCH ×2 (08:48→20:17)
[2021-09-11] MEDS: FLUTICASONE PROP 0.05% NASAL SPRAY 16 GM (FLONASE) NARES SCH ×2 (08:48→20:20)
[2021-09-11] MEDS: LIDOCAINE 5% (LIDODERM) PATCH TD SCH (08:48)
[2021-09-11 16:40] VITALS: BP 131/76
[2021-09-11] MEDS: PRAVASTATIN 20 MG TAB PO SCH (20:17)
[2021-09-11] MEDS: PRAZOSIN 1 MG CAP PO SCH (20:18)
[2021-09-11] MEDS: **NOTE PATIENT COMMENT** MISC XX SCH (20:20)
[2021-09-12 06:21] VITALS: BP 117/70
[2021-09-12] MEDS: LEVOTHYROXINE 137MCG TABLET (0.137MG) PO SCH (06:29)
[2021-09-12] MEDS: GLIMEPIRIDE 2 MG TAB PO SCH ×2 (06:31→16:46)
[2021-09-12] MEDS: FLUTICASONE PROP 0.05% NASAL SPRAY 16 GM (FLONASE) NARES SCH ×2 (09:00→20:32)
[2021-09-12] MEDS: DICLOFENAC EPOLAMINE 1.3 % PATCH TOP SCH ×2 (09:28→20:27)
[2021-09-12] MEDS: LIDOCAINE 5% (LIDODERM) PATCH TD SCH (09:28)
[2021-09-12] MEDS: ASPIRIN 81MG ENTERIC TABLET PO SCH (09:29)
[2021-09-12] MEDS: TOPIRAMATE (TopAMAX) 100 MG TAB PO SCH ×2 (09:29→20:26)
[2021-09-12] MEDS: OMEPRAZOLE 20MG CAP PO SCH (09:29)
[2021-09-12] MEDS: MULTIVITAMINS/MINERALS THERAP 1 TAB PO SCH (09:29)
[2021-09-12] MEDS: SERTRALINE 100 MG TAB PO SCH (09:30)
[2021-09-12] MEDS: FUROSEMIDE 40 MG TAB PO SCH (09:30)
[2021-09-12] MEDS: buPROPion **XL** TABLET 150MG (WELLBUTRIN XL) PO SCH (09:30)
[2021-09-12] MEDS: valACYclovir HCL 500 MG TAB PO SCH (09:31)
[2021-09-12 16:37] VITALS: BP 137/82
[2021-09-12] MEDS: PRAVASTATIN 20 MG TAB PO SCH (20:26)
[2021-09-12] MEDS: IBUPROFEN 600MG TAB PO PRN (20:27)
[2021-09-12] MEDS: **NOTE PATIENT COMMENT** MISC XX SCH (20:32)
[2021-09-12] MEDS: PRAZOSIN 1 MG CAP PO SCH (20:32)
[2021-09-13] MEDS: LEVOTHYROXINE 137MCG TABLET (0.137MG) PO SCH (06:54)
[2021-09-13] MEDS: GLIMEPIRIDE 2 MG TAB PO SCH ×2 (06:54→17:12)
[2021-09-13 07:16] VITALS: BP 123/72
[2021-09-13] MEDS: LIDOCAINE 5% (LIDODERM) PATCH TD SCH (09:00)
[2021-09-13] MEDS: FLUTICASONE PROP 0.05% NASAL SPRAY 16 GM (FLONASE) NARES SCH ×2 (09:02→20:08)
[2021-09-13] MEDS: FUROSEMIDE 40 MG TAB PO SCH (09:04)
[2021-09-13] MEDS: SERTRALINE 100 MG TAB PO SCH (09:04)
[2021-09-13] MEDS: OMEPRAZOLE 20MG CAP PO SCH (09:04)
[2021-09-13] MEDS: buPROPion **XL** TABLET 150MG (WELLBUTRIN XL) PO SCH (09:04)
[2021-09-13] MEDS: valACYclovir HCL 500 MG TAB PO SCH (09:04)
[2021-09-13] MEDS: ASPIRIN 81MG ENTERIC TABLET PO SCH (09:04)
[2021-09-13] MEDS: MULTIVITAMINS/MINERALS THERAP 1 TAB PO SCH (09:04)
[2021-09-13] MEDS: TOPIRAMATE (TopAMAX) 100 MG TAB PO SCH ×2 (09:05→20:08)
[2021-09-13] MEDS: DICLOFENAC EPOLAMINE 1.3 % PATCH TOP SCH ×2 (09:05→20:08)
[2021-09-13 17:34] VITALS: BP 135/61
[2021-09-13] MEDS: PRAVASTATIN 20 MG TAB PO SCH (20:07)
[2021-09-13] MEDS: PRAZOSIN 1 MG CAP PO SCH (20:08)
[2021-09-13] MEDS: **NOTE PATIENT COMMENT** MISC XX SCH (21:00)
[2021-09-14 06:45] VITALS: BP 129/64
[2021-09-14] MEDS: GLIMEPIRIDE 2 MG TAB PO SCH ×2 (06:48→17:28)
[2021-09-14] MEDS: LEVOTHYROXINE 137MCG TABLET (0.137MG) PO SCH (06:48)
[2021-09-14] MEDS: SERTRALINE 100 MG TAB PO SCH (08:22)
[2021-09-14] MEDS: TOPIRAMATE (TopAMAX) 100 MG TAB PO SCH ×2 (08:22→20:32)
[2021-09-14] MEDS: OMEPRAZOLE 20MG CAP PO SCH (08:22)
[2021-09-14] MEDS: valACYclovir HCL 500 MG TAB PO SCH (08:22)
[2021-09-14] MEDS: ASPIRIN 81MG ENTERIC TABLET PO SCH (08:22)
[2021-09-14] MEDS: FLUTICASONE PROP 0.05% NASAL SPRAY 16 GM (FLONASE) NARES SCH ×2 (08:23→20:32)
[2021-09-14] MEDS: buPROPion **XL** TABLET 150MG (WELLBUTRIN XL) PO SCH (08:23)
[2021-09-14] MEDS: DICLOFENAC EPOLAMINE 1.3 % PATCH TOP SCH ×2 (08:23→20:32)
[2021-09-14] MEDS: LIDOCAINE 5% (LIDODERM) PATCH TD SCH (08:23)
[2021-09-14] MEDS: MULTIVITAMINS/MINERALS THERAP 1 TAB PO SCH (08:23)
[2021-09-14] MEDS: FUROSEMIDE 40 MG TAB PO SCH (08:24)
[2021-09-14] MEDS: IBUPROFEN 600MG TAB PO PRN (10:25)
[2021-09-14 16:34] VITALS: BP 120/76
[2021-09-14] MEDS: PRAVASTATIN 20 MG TAB PO SCH (20:32)
[2021-09-14] MEDS: PRAZOSIN 1 MG CAP PO SCH (20:33)
[2021-09-14] MEDS: **NOTE PATIENT COMMENT** MISC XX SCH (20:35)
[2021-09-15] MEDS: GLIMEPIRIDE 2 MG TAB PO SCH ×2 (06:34→17:21)
[2021-09-15] MEDS: LEVOTHYROXINE 137MCG TABLET (0.137MG) PO SCH (06:34)
[2021-09-15 06:39] VITALS: BP 134/74
[2021-09-15] MEDS: FLUTICASONE PROP 0.05% NASAL SPRAY 16 GM (FLONASE) NARES SCH ×2 (08:49→20:40)
[2021-09-15] MEDS: TOPIRAMATE (TopAMAX) 100 MG TAB PO SCH ×2 (08:49→20:38)
[2021-09-15] MEDS: valACYclovir HCL 500 MG TAB PO SCH (08:49)
[2021-09-15] MEDS: OMEPRAZOLE 20MG CAP PO SCH (08:49)
[2021-09-15] MEDS: buPROPion **XL** TABLET 150MG (WELLBUTRIN XL) PO SCH (08:50)
[2021-09-15] MEDS: DICLOFENAC EPOLAMINE 1.3 % PATCH TOP SCH ×2 (08:50→20:39)
[2021-09-15] MEDS: ASPIRIN 81MG ENTERIC TABLET PO SCH (08:50)
[2021-09-15] MEDS: SERTRALINE 100 MG TAB PO SCH (08:50)
[2021-09-15] MEDS: LIDOCAINE 5% (LIDODERM) PATCH TD SCH (08:50)
[2021-09-15] MEDS: FUROSEMIDE 40 MG TAB PO SCH (08:50)
[2021-09-15] MEDS: MULTIVITAMINS/MINERALS THERAP 1 TAB PO SCH (08:50)
[2021-09-15 16:19] VITALS: BP 129/76
[2021-09-15] MEDS: PRAZOSIN 1 MG CAP PO SCH (20:38)
[2021-09-15] MEDS: PRAVASTATIN 20 MG TAB PO SCH (20:38)
[2021-09-15] MEDS: **NOTE PATIENT COMMENT** MISC XX SCH (20:40)
[2021-09-16] MEDS: GLIMEPIRIDE 2 MG TAB PO SCH ×2 (06:54→17:22)
[2021-09-16] MEDS: LEVOTHYROXINE 137MCG TABLET (0.137MG) PO SCH (06:54)
[2021-09-16 06:58] VITALS: BP 109/57
[2021-09-16] MEDS: OMEPRAZOLE 20MG CAP PO SCH (08:53)
[2021-09-16] MEDS: buPROPion **XL** TABLET 150MG (WELLBUTRIN XL) PO SCH (08:53)
[2021-09-16] MEDS: valACYclovir HCL 500 MG TAB PO SCH (08:55)
[2021-09-16] MEDS: TOPIRAMATE (TopAMAX) 100 MG TAB PO SCH ×2 (08:55→20:29)
[2021-09-16] MEDS: FUROSEMIDE 40 MG TAB PO SCH (08:55)
[2021-09-16] MEDS: MULTIVITAMINS/MINERALS THERAP 1 TAB PO SCH (08:55)
[2021-09-16] MEDS: SERTRALINE 100 MG TAB PO SCH (08:56)
[2021-09-16] MEDS: ASPIRIN 81MG ENTERIC TABLET PO SCH (08:56)
[2021-09-16] MEDS: DICLOFENAC EPOLAMINE 1.3 % PATCH TOP SCH ×2 (08:58→20:30)
[2021-09-16] MEDS: LIDOCAINE 5% (LIDODERM) PATCH TD SCH (08:59)
[2021-09-16] MEDS: FLUTICASONE PROP 0.05% NASAL SPRAY 16 GM (FLONASE) NARES SCH ×2 (08:59→20:30)
[2021-09-16 16:26] VITALS: BP 124/69
[2021-09-16] MEDS: ACETAMINOPHEN TAB 650MG DOSE (2X325MG) PO PRN (19:14)
[2021-09-16] MEDS: **NOTE PATIENT COMMENT** MISC XX SCH (20:30)
[2021-09-16] MEDS: PRAVASTATIN 20 MG TAB PO SCH (20:30)
[2021-09-16] MEDS: PRAZOSIN 1 MG CAP PO SCH (20:30)
[2021-09-17 06:29] VITALS: BP 139/82
[2021-09-17] MEDS: LEVOTHYROXINE 137MCG TABLET (0.137MG) PO SCH (06:34)
[2021-09-17] MEDS: GLIMEPIRIDE 2 MG TAB PO SCH ×2 (06:36→17:47)
[2021-09-17] MEDS: valACYclovir HCL 500 MG TAB PO SCH (09:43)
[2021-09-17] MEDS: FLUTICASONE PROP 0.05% NASAL SPRAY 16 GM (FLONASE) NARES SCH ×2 (09:43→20:04)
[2021-09-17] MEDS: FUROSEMIDE 40 MG TAB PO SCH (09:44)
[2021-09-17] MEDS: ASPIRIN 81MG ENTERIC TABLET PO SCH (09:45)
[2021-09-17] MEDS: OMEPRAZOLE 20MG CAP PO SCH (09:45)
[2021-09-17] MEDS: MULTIVITAMINS/MINERALS THERAP 1 TAB PO SCH (09:45)
[2021-09-17] MEDS: SERTRALINE 100 MG TAB PO SCH (09:45)
[2021-09-17] MEDS: DICLOFENAC EPOLAMINE 1.3 % PATCH TOP SCH ×2 (09:48→20:06)
[2021-09-17] MEDS: TOPIRAMATE (TopAMAX) 100 MG TAB PO SCH ×2 (09:48→20:04)
[2021-09-17] MEDS: buPROPion **XL** TABLET 150MG (WELLBUTRIN XL) PO SCH (09:48)
[2021-09-17] MEDS: LIDOCAINE 5% (LIDODERM) PATCH TD SCH (09:50)
[2021-09-17 18:00] VITALS: BP 130/70
[2021-09-17] MEDS: PRAZOSIN 1 MG CAP PO SCH (20:04)
[2021-09-17] MEDS: **NOTE PATIENT COMMENT** MISC XX SCH (20:06)
[2021-09-17] MEDS: PRAVASTATIN 20 MG TAB PO SCH (20:06)
[2021-09-18] MEDS: LEVOTHYROXINE 137MCG TABLET (0.137MG) PO SCH (05:27)
[2021-09-18] MEDS: GLIMEPIRIDE 2 MG TAB PO SCH ×2 (06:23→17:30)
[2021-09-18 06:42] VITALS: BP 119/73
[2021-09-18] MEDS: LIDOCAINE 5% (LIDODERM) PATCH TD SCH (09:00)
[2021-09-18] MEDS: DICLOFENAC EPOLAMINE 1.3 % PATCH TOP SCH ×2 (09:00→21:10)
[2021-09-18] MEDS: FLUTICASONE PROP 0.05% NASAL SPRAY 16 GM (FLONASE) NARES SCH ×2 (09:28→21:00)
[2021-09-18] MEDS: valACYclovir HCL 500 MG TAB PO SCH (09:28)
[2021-09-18] MEDS: FUROSEMIDE 40 MG TAB PO SCH (09:29)
[2021-09-18] MEDS: SERTRALINE 100 MG TAB PO SCH (09:30)
[2021-09-18] MEDS: TOPIRAMATE (TopAMAX) 100 MG TAB PO SCH ×2 (09:31→21:10)
[2021-09-18] MEDS: buPROPion **XL** TABLET 150MG (WELLBUTRIN XL) PO SCH (09:31)
[2021-09-18] MEDS: ASPIRIN 81MG ENTERIC TABLET PO SCH (09:31)
[2021-09-18] MEDS: MULTIVITAMINS/MINERALS THERAP 1 TAB PO SCH (09:32)
[2021-09-18] MEDS: OMEPRAZOLE 20MG CAP PO SCH (09:32)
[2021-09-18] MEDS: **NOTE PATIENT COMMENT** MISC XX SCH (21:00)
[2021-09-18] MEDS: PRAVASTATIN 20 MG TAB PO SCH (21:10)
[2021-09-18] MEDS: PRAZOSIN 1 MG CAP PO SCH (21:12)
[2021-09-19 06:18] VITALS: BP 133/85
[2021-09-19] MEDS: GLIMEPIRIDE 2 MG TAB PO SCH ×2 (06:32→17:41)
[2021-09-19] MEDS: LEVOTHYROXINE 137MCG TABLET (0.137MG) PO SCH (06:32)
[2021-09-19] MEDS: LIDOCAINE 5% (LIDODERM) PATCH TD SCH ×2 (08:40→09:17)
[2021-09-19] MEDS: buPROPion **XL** TABLET 150MG (WELLBUTRIN XL) PO SCH (08:41)
[2021-09-19] MEDS: OMEPRAZOLE 20MG CAP PO SCH (08:41)
[2021-09-19] MEDS: ASPIRIN 81MG ENTERIC TABLET PO SCH (08:41)
[2021-09-19] MEDS: TOPIRAMATE (TopAMAX) 100 MG TAB PO SCH ×2 (08:41→20:21)
[2021-09-19] MEDS: DICLOFENAC EPOLAMINE 1.3 % PATCH TOP SCH ×2 (08:41→20:21)
[2021-09-19] MEDS: valACYclovir HCL 500 MG TAB PO SCH (08:41)
[2021-09-19] MEDS: SERTRALINE 100 MG TAB PO SCH (08:41)
[2021-09-19] MEDS: FUROSEMIDE 40 MG TAB PO SCH (08:42)
[2021-09-19] MEDS: MULTIVITAMINS/MINERALS THERAP 1 TAB PO SCH (08:42)
[2021-09-19] MEDS: FLUTICASONE PROP 0.05% NASAL SPRAY 16 GM (FLONASE) NARES SCH ×2 (08:42→20:21)
[2021-09-19 18:15] VITALS: BP 134/86
[2021-09-19] MEDS: IBUPROFEN 600MG TAB PO PRN (19:39)
[2021-09-19] MEDS: PRAVASTATIN 20 MG TAB PO SCH (20:21)
[2021-09-19] MEDS: PRAZOSIN 1 MG CAP PO SCH (20:21)
[2021-09-19] MEDS: **NOTE PATIENT COMMENT** MISC XX SCH (20:24)
[2021-09-20 06:32] VITALS: BP 119/77
[2021-09-20] MEDS: GLIMEPIRIDE 2 MG TAB PO SCH ×2 (06:33→17:57)
[2021-09-20] MEDS: LEVOTHYROXINE 137MCG TABLET (0.137MG) PO SCH (06:33)
[2021-09-20] MEDS: LIDOCAINE 5% (LIDODERM) PATCH TD SCH (09:00)
[2021-09-20] MEDS: FLUTICASONE PROP 0.05% NASAL SPRAY 16 GM (FLONASE) NARES SCH ×2 (09:00→21:02)
[2021-09-20] MEDS: ASPIRIN 81MG ENTERIC TABLET PO SCH (09:03)
[2021-09-20] MEDS: TOPIRAMATE (TopAMAX) 100 MG TAB PO SCH ×2 (09:03→21:01)
[2021-09-20] MEDS: SERTRALINE 100 MG TAB PO SCH (09:03)
[2021-09-20] MEDS: OMEPRAZOLE 20MG CAP PO SCH (09:03)
[2021-09-20] MEDS: DICLOFENAC EPOLAMINE 1.3 % PATCH TOP SCH ×2 (09:03→21:01)
[2021-09-20] MEDS: FUROSEMIDE 40 MG TAB PO SCH (09:04)
[2021-09-20] MEDS: buPROPion **XL** TABLET 150MG (WELLBUTRIN XL) PO SCH (09:04)
[2021-09-20] MEDS: MULTIVITAMINS/MINERALS THERAP 1 TAB PO SCH (09:04)
[2021-09-20] MEDS: valACYclovir HCL 500 MG TAB PO SCH (09:06)
[2021-09-20 16:44] VITALS: BP 139/64
[2021-09-20] MEDS: **NOTE PATIENT COMMENT** MISC XX SCH (21:00)
[2021-09-20] MEDS: PRAVASTATIN 20 MG TAB PO SCH (21:01)
[2021-09-20] MEDS: PRAZOSIN 1 MG CAP PO SCH (21:01)
[2021-09-21 06:17] VITALS: BP 132/80
[2021-09-21] MEDS: LEVOTHYROXINE 137MCG TABLET (0.137MG) PO SCH (06:31)
[2021-09-21] MEDS: GLIMEPIRIDE 2 MG TAB PO SCH ×2 (06:31→17:21)
[2021-09-21] MEDS: LIDOCAINE 5% (LIDODERM) PATCH TD SCH (09:00)
[2021-09-21] MEDS ORDERED: HALOPERIDOL DECANOATE 100 MG/ML VIAL (J1631) IM ONE (09:00)
[2021-09-21] MEDS: FLUTICASONE PROP 0.05% NASAL SPRAY 16 GM (FLONASE) NARES SCH ×2 (09:00→20:10)
[2021-09-21] MEDS: DICLOFENAC EPOLAMINE 1.3 % PATCH TOP SCH ×2 (09:18→20:10)
[2021-09-21] MEDS: FUROSEMIDE 40 MG TAB PO SCH (09:19)
[2021-09-21] MEDS: buPROPion **XL** TABLET 150MG (WELLBUTRIN XL) PO SCH (09:20)
[2021-09-21] MEDS: ASPIRIN 81MG ENTERIC TABLET PO SCH (09:20)
[2021-09-21] MEDS: MULTIVITAMINS/MINERALS THERAP 1 TAB PO SCH (09:20)
[2021-09-21] MEDS: OMEPRAZOLE 20MG CAP PO SCH (09:20)
[2021-09-21] MEDS: valACYclovir HCL 500 MG TAB PO SCH (09:22)
[2021-09-21] MEDS: TOPIRAMATE (TopAMAX) 100 MG TAB PO SCH ×2 (09:22→20:11)
[2021-09-21] MEDS: SERTRALINE 100 MG TAB PO SCH (09:22)
[2021-09-21 18:15] VITALS: BP 114/68
[2021-09-21] MEDS: PRAZOSIN 1 MG CAP PO SCH (20:11)
[2021-09-21] MEDS: PRAVASTATIN 20 MG TAB PO SCH (20:11)
[2021-09-21] MEDS: **NOTE PATIENT COMMENT** MISC XX SCH (21:00)
[2021-09-22] MEDS: LEVOTHYROXINE 137MCG TABLET (0.137MG) PO SCH (05:41)
[2021-09-22 06:21] VITALS: BP 134/87
[2021-09-22] MEDS: GLIMEPIRIDE 2 MG TAB PO SCH ×2 (06:32→16:59)
[2021-09-22] MEDS: ASPIRIN 81MG ENTERIC TABLET PO SCH (09:42)
[2021-09-22] MEDS: FUROSEMIDE 40 MG TAB PO SCH (09:43)
[2021-09-22] MEDS: MULTIVITAMINS/MINERALS THERAP 1 TAB PO SCH (09:43)
[2021-09-22] MEDS: OMEPRAZOLE 20MG CAP PO SCH (09:43)
[2021-09-22] MEDS: valACYclovir HCL 500 MG TAB PO SCH (09:44)
[2021-09-22] MEDS: TOPIRAMATE (TopAMAX) 100 MG TAB PO SCH ×2 (09:44→20:54)
[2021-09-22] MEDS: buPROPion **XL** TABLET 150MG (WELLBUTRIN XL) PO SCH (09:44)
[2021-09-22] MEDS: LIDOCAINE 5% (LIDODERM) PATCH TD SCH (09:45)
[2021-09-22] MEDS: DICLOFENAC EPOLAMINE 1.3 % PATCH TOP SCH ×2 (09:45→20:54)
[2021-09-22] MEDS: SERTRALINE 100 MG TAB PO SCH (09:45)
[2021-09-22] MEDS: FLUTICASONE PROP 0.05% NASAL SPRAY 16 GM (FLONASE) NARES SCH ×2 (09:46→20:53)
[2021-09-22 18:00] VITALS: BP 140/62
[2021-09-22] MEDS: **NOTE PATIENT COMMENT** MISC XX SCH (20:51)
[2021-09-22] MEDS: PRAZOSIN 1 MG CAP PO SCH (20:55)
[2021-09-22] MEDS: PRAVASTATIN 20 MG TAB PO SCH (20:56)
[2021-09-23] MEDS: LEVOTHYROXINE 137MCG TABLET (0.137MG) PO SCH (05:25)
[2021-09-23] MEDS: GLIMEPIRIDE 2 MG TAB PO SCH ×2 (06:33→17:05)
[2021-09-23 06:42] VITALS: BP 112/58
[2021-09-23] MEDS: FLUTICASONE PROP 0.05% NASAL SPRAY 16 GM (FLONASE) NARES SCH ×2 (09:18→20:51)
[2021-09-23] MEDS: ASPIRIN 81MG ENTERIC TABLET PO SCH (09:19)
[2021-09-23] MEDS: FUROSEMIDE 40 MG TAB PO SCH (09:19)
[2021-09-23] MEDS: SERTRALINE 100 MG TAB PO SCH (09:19)
[2021-09-23] MEDS: valACYclovir HCL 500 MG TAB PO SCH (09:19)
[2021-09-23] MEDS: MULTIVITAMINS/MINERALS THERAP 1 TAB PO SCH (09:20)
[2021-09-23] MEDS: buPROPion **XL** TABLET 150MG (WELLBUTRIN XL) PO SCH (09:20)
[2021-09-23] MEDS: OMEPRAZOLE 20MG CAP PO SCH (09:20)
[2021-09-23] MEDS: TOPIRAMATE (TopAMAX) 100 MG TAB PO SCH ×2 (09:21→20:52)
[2021-09-23] MEDS: LIDOCAINE 5% (LIDODERM) PATCH TD SCH (09:21)
[2021-09-23] MEDS: DICLOFENAC EPOLAMINE 1.3 % PATCH TOP SCH ×2 (09:22→20:54)
[2021-09-23] MEDS: **NOTE PATIENT COMMENT** MISC XX SCH (20:51)
[2021-09-23] MEDS: PRAVASTATIN 20 MG TAB PO SCH (20:52)
[2021-09-23] MEDS: PRAZOSIN 1 MG CAP PO SCH (20:54)
[2021-09-24 06:11] VITALS: BP 121/70
[2021-09-24] MEDS: GLIMEPIRIDE 2 MG TAB PO SCH ×2 (06:37→17:14)
[2021-09-24] MEDS: LEVOTHYROXINE 137MCG TABLET (0.137MG) PO SCH (06:38)
[2021-09-24] MEDS: FLUTICASONE PROP 0.05% NASAL SPRAY 16 GM (FLONASE) NARES SCH ×2 (09:00→20:38)
[2021-09-24] MEDS: LIDOCAINE 5% (LIDODERM) PATCH TD SCH (09:00)
[2021-09-24] MEDS: DICLOFENAC EPOLAMINE 1.3 % PATCH TOP SCH ×2 (09:00→20:42)
[2021-09-24] MEDS ORDERED: HALOPERIDOL DECANOATE 100 MG/ML VIAL (J1631) IM ONE (09:00)
[2021-09-24] MEDS: MULTIVITAMINS/MINERALS THERAP 1 TAB PO SCH (09:07)
[2021-09-24] MEDS: ASPIRIN 81MG ENTERIC TABLET PO SCH (09:07)
[2021-09-24] MEDS: valACYclovir HCL 500 MG TAB PO SCH (09:08)
[2021-09-24] MEDS: buPROPion **XL** TABLET 150MG (WELLBUTRIN XL) PO SCH (09:09)
[2021-09-24] MEDS: SERTRALINE 100 MG TAB PO SCH (09:09)
[2021-09-24] MEDS: TOPIRAMATE (TopAMAX) 100 MG TAB PO SCH ×2 (09:09→20:37)
[2021-09-24] MEDS: FUROSEMIDE 40 MG TAB PO SCH (09:09)
[2021-09-24] MEDS: OMEPRAZOLE 20MG CAP PO SCH (09:09)
[2021-09-24 09:27] VITALS: BP_SYST 118; BP_SYST 121; BP_SYST 126; BP_SYST 128; BP_DIAS 72; BP_DIAS 77; BP_DIAS 78
[2021-09-24 09:34] VITALS: BP 121/72
[2021-09-24 16:10] VITALS: BP 122/84
[2021-09-24] MEDS: PRAZOSIN 1 MG CAP PO SCH (20:37)
[2021-09-24] MEDS: PRAVASTATIN 20 MG TAB PO SCH (20:37)
[2021-09-24] MEDS: **NOTE PATIENT COMMENT** MISC XX SCH (20:42)
[2021-09-24] MEDS: IBUPROFEN 600MG TAB PO PRN (20:54)
[2021-09-25 06:14] VITALS: BP 112/74
[2021-09-25] MEDS: GLIMEPIRIDE 2 MG TAB PO SCH ×2 (07:07→16:57)
[2021-09-25] MEDS: LEVOTHYROXINE 137MCG TABLET (0.137MG) PO SCH (07:07)
[2021-09-25] MEDS: valACYclovir HCL 500 MG TAB PO SCH (09:35)
[2021-09-25] MEDS: SERTRALINE 100 MG TAB PO SCH (09:35)
[2021-09-25] MEDS: OMEPRAZOLE 20MG CAP PO SCH (09:35)
[2021-09-25] MEDS: ASPIRIN 81MG ENTERIC TABLET PO SCH (09:35)
[2021-09-25] MEDS: TOPIRAMATE (TopAMAX) 100 MG TAB PO SCH ×2 (09:35→20:14)
[2021-09-25] MEDS: FLUTICASONE PROP 0.05% NASAL SPRAY 16 GM (FLONASE) NARES SCH ×2 (09:35→20:18)
[2021-09-25] MEDS: buPROPion **XL** TABLET 150MG (WELLBUTRIN XL) PO SCH (09:35)
[2021-09-25] MEDS: MULTIVITAMINS/MINERALS THERAP 1 TAB PO SCH (09:35)
[2021-09-25] MEDS: FUROSEMIDE 40 MG TAB PO SCH (09:36)
[2021-09-25] MEDS: DICLOFENAC EPOLAMINE 1.3 % PATCH TOP SCH ×2 (09:36→20:13)
[2021-09-25] MEDS: LIDOCAINE 5% (LIDODERM) PATCH TD SCH (09:36)
[2021-09-25] MEDS: IBUPROFEN 600MG TAB PO PRN (12:48)
[2021-09-25 16:21] VITALS: BP 130/76
[2021-09-25] MEDS: PRAVASTATIN 20 MG TAB PO SCH (20:13)
[2021-09-25] MEDS: PRAZOSIN 1 MG CAP PO SCH (20:14)
[2021-09-25] MEDS: **NOTE PATIENT COMMENT** MISC XX SCH (20:18)
[2021-09-26] MEDS: GLIMEPIRIDE 2 MG TAB PO SCH ×2 (06:33→16:53)
[2021-09-26] MEDS: LEVOTHYROXINE 137MCG TABLET (0.137MG) PO SCH (06:33)
[2021-09-26 06:34] VITALS: BP 155/83
[2021-09-26] MEDS: DICLOFENAC EPOLAMINE 1.3 % PATCH TOP SCH ×2 (08:55→20:28)
[2021-09-26] MEDS: FLUTICASONE PROP 0.05% NASAL SPRAY 16 GM (FLONASE) NARES SCH ×2 (08:55→20:28)
[2021-09-26] MEDS: TOPIRAMATE (TopAMAX) 100 MG TAB PO SCH ×2 (08:56→20:31)
[2021-09-26] MEDS: LIDOCAINE 5% (LIDODERM) PATCH TD SCH (08:56)
[2021-09-26] MEDS: valACYclovir HCL 500 MG TAB PO SCH (08:57)
[2021-09-26] MEDS: SERTRALINE 100 MG TAB PO SCH (08:57)
[2021-09-26] MEDS: MULTIVITAMINS/MINERALS THERAP 1 TAB PO SCH (08:57)
[2021-09-26] MEDS: FUROSEMIDE 40 MG TAB PO SCH (08:58)
[2021-09-26] MEDS: OMEPRAZOLE 20MG CAP PO SCH (08:58)
[2021-09-26] MEDS: buPROPion **XL** TABLET 150MG (WELLBUTRIN XL) PO SCH (08:58)
[2021-09-26] MEDS: ASPIRIN 81MG ENTERIC TABLET PO SCH (08:58)
[2021-09-26 16:11] VITALS: BP 109/68
[2021-09-26] MEDS: PRAVASTATIN 20 MG TAB PO SCH (20:28)
[2021-09-26] MEDS: **NOTE PATIENT COMMENT** MISC XX SCH (20:31)
[2021-09-26] MEDS: PRAZOSIN 1 MG CAP PO SCH (20:31)
[2021-09-27] MEDS: LEVOTHYROXINE 137MCG TABLET (0.137MG) PO SCH (05:16)
[2021-09-27 06:31] VITALS: BP 137/55
[2021-09-27] MEDS: GLIMEPIRIDE 2 MG TAB PO SCH ×2 (06:37→17:03)
[2021-09-27] MEDS: buPROPion **XL** TABLET 150MG (WELLBUTRIN XL) PO SCH (08:28)
[2021-09-27] MEDS: MULTIVITAMINS/MINERALS THERAP 1 TAB PO SCH (08:28)
[2021-09-27] MEDS: valACYclovir HCL 500 MG TAB PO SCH (08:29)
[2021-09-27] MEDS: ASPIRIN 81MG ENTERIC TABLET PO SCH (08:29)
[2021-09-27] MEDS: TOPIRAMATE (TopAMAX) 100 MG TAB PO SCH ×2 (08:30→20:23)
[2021-09-27] MEDS: FUROSEMIDE 40 MG TAB PO SCH (08:30)
[2021-09-27] MEDS: OMEPRAZOLE 20MG CAP PO SCH (08:30)
[2021-09-27] MEDS: SERTRALINE 100 MG TAB PO SCH (08:30)
[2021-09-27] MEDS: LIDOCAINE 5% (LIDODERM) PATCH TD SCH (08:31)
[2021-09-27] MEDS: FLUTICASONE PROP 0.05% NASAL SPRAY 16 GM (FLONASE) NARES SCH ×2 (08:31→20:21)
[2021-09-27] MEDS: DICLOFENAC EPOLAMINE 1.3 % PATCH TOP SCH ×2 (08:31→20:21)
[2021-09-27 17:03] VITALS: BP 136/78
[2021-09-27] MEDS: IBUPROFEN 600MG TAB PO PRN (20:22)
[2021-09-27] MEDS: PRAVASTATIN 20 MG TAB PO SCH (20:23)
[2021-09-27] MEDS: PRAZOSIN 1 MG CAP PO SCH (20:23)
[2021-09-27] MEDS: **NOTE PATIENT COMMENT** MISC XX SCH (20:23)
[2021-09-28 06:06] VITALS: BP 131/74
[2021-09-28] MEDS: LEVOTHYROXINE 137MCG TABLET (0.137MG) PO SCH (06:20)
[2021-09-28] MEDS: GLIMEPIRIDE 2 MG TAB PO SCH ×2 (06:27→17:37)
[2021-09-28] MEDS: FLUTICASONE PROP 0.05% NASAL SPRAY 16 GM (FLONASE) NARES SCH ×2 (07:56→20:14)
[2021-09-28] MEDS: buPROPion **XL** TABLET 150MG (WELLBUTRIN XL) PO SCH (07:57)
[2021-09-28] MEDS: MULTIVITAMINS/MINERALS THERAP 1 TAB PO SCH (07:57)
[2021-09-28] MEDS: TOPIRAMATE (TopAMAX) 100 MG TAB PO SCH ×2 (07:57→20:14)
[2021-09-28] MEDS: ASPIRIN 81MG ENTERIC TABLET PO SCH (07:58)
[2021-09-28] MEDS: OMEPRAZOLE 20MG CAP PO SCH (07:58)
[2021-09-28] MEDS: valACYclovir HCL 500 MG TAB PO SCH (07:58)
[2021-09-28] MEDS: FUROSEMIDE 40 MG TAB PO SCH (07:59)
[2021-09-28] MEDS: LIDOCAINE 5% (LIDODERM) PATCH TD SCH (08:00)
[2021-09-28] MEDS: DICLOFENAC EPOLAMINE 1.3 % PATCH TOP SCH ×2 (08:00→20:14)
[2021-09-28] MEDS: SERTRALINE 100 MG TAB PO SCH (08:02)
[2021-09-28 16:48] VITALS: BP 133/80
[2021-09-28 20:13] VITALS: BP 142/93
[2021-09-28] MEDS: PRAZOSIN 1 MG CAP PO SCH (20:13)
[2021-09-28] MEDS: PRAVASTATIN 20 MG TAB PO SCH (20:13)
[2021-09-28] MEDS: **NOTE PATIENT COMMENT** MISC XX SCH (20:14)
[2021-09-29 06:00] VITALS: BP 149/83
[2021-09-29] MEDS: LEVOTHYROXINE 137MCG TABLET (0.137MG) PO SCH (06:29)
[2021-09-29] MEDS: GLIMEPIRIDE 2 MG TAB PO SCH ×2 (06:30→17:17)
[2021-09-29] MEDS: valACYclovir HCL 500 MG TAB PO SCH (08:05)
[2021-09-29] MEDS: MULTIVITAMINS/MINERALS THERAP 1 TAB PO SCH (08:05)
[2021-09-29] MEDS: FUROSEMIDE 40 MG TAB PO SCH (08:05)
[2021-09-29] MEDS: OMEPRAZOLE 20MG CAP PO SCH (08:05)
[2021-09-29] MEDS: SERTRALINE 100 MG TAB PO SCH (08:05)
[2021-09-29] MEDS: LIDOCAINE 5% (LIDODERM) PATCH TD SCH (08:06)
[2021-09-29] MEDS: buPROPion **XL** TABLET 150MG (WELLBUTRIN XL) PO SCH (08:06)
[2021-09-29] MEDS: FLUTICASONE PROP 0.05% NASAL SPRAY 16 GM (FLONASE) NARES SCH ×2 (08:06→19:56)
[2021-09-29] MEDS: TOPIRAMATE (TopAMAX) 100 MG TAB PO SCH ×2 (08:06→19:56)
[2021-09-29] MEDS: ASPIRIN 81MG ENTERIC TABLET PO SCH (08:06)
[2021-09-29] MEDS: DICLOFENAC EPOLAMINE 1.3 % PATCH TOP SCH ×2 (08:07→19:56)
[2021-09-29 16:51] VITALS: BP 139/83
[2021-09-29] MEDS: PRAVASTATIN 20 MG TAB PO SCH (19:55)
[2021-09-29] MEDS: PRAZOSIN 1 MG CAP PO SCH (19:56)
[2021-09-29] MEDS: **NOTE PATIENT COMMENT** MISC XX SCH (19:56)
[2021-09-30] MEDS: LEVOTHYROXINE 137MCG TABLET (0.137MG) PO SCH (05:30)
[2021-09-30 06:16] VITALS: BP 126/88
[2021-09-30] MEDS: TOPIRAMATE (TopAMAX) 100 MG TAB PO SCH ×2 (07:52→20:23)
[2021-09-30] MEDS: ASPIRIN 81MG ENTERIC TABLET PO SCH (07:53)
[2021-09-30] MEDS: valACYclovir HCL 500 MG TAB PO SCH (07:53)
[2021-09-30] MEDS: GLIMEPIRIDE 2 MG TAB PO SCH ×2 (07:53→16:42)
[2021-09-30] MEDS: MULTIVITAMINS/MINERALS THERAP 1 TAB PO SCH (07:53)
[2021-09-30] MEDS: SERTRALINE 100 MG TAB PO SCH (07:53)
[2021-09-30] MEDS: OMEPRAZOLE 20MG CAP PO SCH (07:53)
[2021-09-30] MEDS: FLUTICASONE PROP 0.05% NASAL SPRAY 16 GM (FLONASE) NARES SCH ×2 (07:54→20:22)
[2021-09-30] MEDS: buPROPion **XL** TABLET 150MG (WELLBUTRIN XL) PO SCH (07:54)
[2021-09-30] MEDS: DICLOFENAC EPOLAMINE 1.3 % PATCH TOP SCH ×2 (07:54→20:22)
[2021-09-30] MEDS: LIDOCAINE 5% (LIDODERM) PATCH TD SCH (07:54)
[2021-09-30] MEDS: FUROSEMIDE 40 MG TAB PO SCH (07:54)
[2021-09-30 16:10] VITALS: BP 108/57
[2021-09-30] MEDS: PRAZOSIN 1 MG CAP PO SCH (20:22)
[2021-09-30] MEDS: **NOTE PATIENT COMMENT** MISC XX SCH (20:23)
[2021-09-30] MEDS: PRAVASTATIN 20 MG TAB PO SCH (20:23)
[2021-10-01] MEDS: GLIMEPIRIDE 2 MG TAB PO SCH ×2 (06:40→17:40)
[2021-10-01] MEDS: LEVOTHYROXINE 137MCG TABLET (0.137MG) PO SCH (06:40)
[2021-10-01 07:08] VITALS: BP 134/78
[2021-10-01] MEDS: FLUTICASONE PROP 0.05% NASAL SPRAY 16 GM (FLONASE) NARES SCH ×2 (08:40→20:20)
[2021-10-01] MEDS: ASPIRIN 81MG ENTERIC TABLET PO SCH (08:42)
[2021-10-01] MEDS: FUROSEMIDE 40 MG TAB PO SCH (08:42)
[2021-10-01] MEDS: buPROPion **XL** TABLET 150MG (WELLBUTRIN XL) PO SCH (08:43)
[2021-10-01] MEDS: valACYclovir HCL 500 MG TAB PO SCH (08:44)
[2021-10-01] MEDS: DICLOFENAC EPOLAMINE 1.3 % PATCH TOP SCH ×2 (08:44→20:20)
[2021-10-01] MEDS: OMEPRAZOLE 20MG CAP PO SCH (08:45)
[2021-10-01] MEDS: MULTIVITAMINS/MINERALS THERAP 1 TAB PO SCH (08:45)
[2021-10-01] MEDS: SERTRALINE 100 MG TAB PO SCH (08:45)
[2021-10-01] MEDS: LIDOCAINE 5% (LIDODERM) PATCH TD SCH (08:47)
[2021-10-01] MEDS: TOPIRAMATE (TopAMAX) 100 MG TAB PO SCH ×2 (08:48→20:21)
[2021-10-01 18:00] VITALS: BP 140/80
[2021-10-01] MEDS: PRAVASTATIN 20 MG TAB PO SCH (20:20)
[2021-10-01] MEDS: ACETAMINOPHEN TAB 650MG DOSE (2X325MG) PO PRN (20:21)
[2021-10-01] MEDS: PRAZOSIN 1 MG CAP PO SCH (20:21)
[2021-10-01] MEDS: **NOTE PATIENT COMMENT** MISC XX SCH (20:22)
[2021-10-02 06:00] VITALS: BP 142/84
[2021-10-02] MEDS: LEVOTHYROXINE 137MCG TABLET (0.137MG) PO SCH (06:51)
[2021-10-02] MEDS: GLIMEPIRIDE 2 MG TAB PO SCH ×2 (06:52→17:44)
[2021-10-02] MEDS: MULTIVITAMINS/MINERALS THERAP 1 TAB PO SCH (08:23)
[2021-10-02] MEDS: FLUTICASONE PROP 0.05% NASAL SPRAY 16 GM (FLONASE) NARES SCH ×2 (08:23→20:12)
[2021-10-02] MEDS: buPROPion **XL** TABLET 150MG (WELLBUTRIN XL) PO SCH (08:23)
[2021-10-02] MEDS: OMEPRAZOLE 20MG CAP PO SCH (08:24)
[2021-10-02] MEDS: ASPIRIN 81MG ENTERIC TABLET PO SCH (08:24)
[2021-10-02] MEDS: SERTRALINE 100 MG TAB PO SCH (08:24)
[2021-10-02] MEDS: valACYclovir HCL 500 MG TAB PO SCH (08:24)
[2021-10-02] MEDS: FUROSEMIDE 40 MG TAB PO SCH (08:24)
[2021-10-02] MEDS: TOPIRAMATE (TopAMAX) 100 MG TAB PO SCH ×2 (08:24→20:14)
[2021-10-02] MEDS: DICLOFENAC EPOLAMINE 1.3 % PATCH TOP SCH ×2 (08:25→20:12)
[2021-10-02] MEDS: LIDOCAINE 5% (LIDODERM) PATCH TD SCH (08:29)
[2021-10-02 18:59] VITALS: BP 130/75
[2021-10-02] MEDS: PRAVASTATIN 20 MG TAB PO SCH (20:14)
[2021-10-02] MEDS: PRAZOSIN 1 MG CAP PO SCH (20:17)
[2021-10-02] MEDS: **NOTE PATIENT COMMENT** MISC XX SCH (20:17)
[2021-10-03] MEDS: LEVOTHYROXINE 137MCG TABLET (0.137MG) PO SCH (05:37)
[2021-10-03 06:13] VITALS: BP_SYST 107; BP_SYST 144; BP_DIAS 55; BP_DIAS 62
[2021-10-03] MEDS: FLUTICASONE PROP 0.05% NASAL SPRAY 16 GM (FLONASE) NARES SCH ×2 (09:20→20:22)
[2021-10-03] MEDS: LIDOCAINE 5% (LIDODERM) PATCH TD SCH (09:20)
[2021-10-03] MEDS: GLIMEPIRIDE 2 MG TAB PO SCH ×2 (09:22→17:46)
[2021-10-03] MEDS: SERTRALINE 100 MG TAB PO SCH (09:22)
[2021-10-03] MEDS: valACYclovir HCL 500 MG TAB PO SCH (09:22)
[2021-10-03] MEDS: DICLOFENAC EPOLAMINE 1.3 % PATCH TOP SCH ×2 (09:22→20:23)
[2021-10-03] MEDS: OMEPRAZOLE 20MG CAP PO SCH (09:22)
[2021-10-03] MEDS: TOPIRAMATE (TopAMAX) 100 MG TAB PO SCH ×2 (09:23→20:23)
[2021-10-03] MEDS: buPROPion **XL** TABLET 150MG (WELLBUTRIN XL) PO SCH (09:23)
[2021-10-03] MEDS: FUROSEMIDE 40 MG TAB PO SCH (09:23)
[2021-10-03] MEDS: ASPIRIN 81MG ENTERIC TABLET PO SCH (09:23)
[2021-10-03] MEDS: MULTIVITAMINS/MINERALS THERAP 1 TAB PO SCH (09:23)
[2021-10-03] MEDS: ACETAMINOPHEN TAB 650MG DOSE (2X325MG) PO PRN (15:58)
[2021-10-03 18:02] VITALS: BP 145/92
[2021-10-03] MEDS: PRAVASTATIN 20 MG TAB PO SCH (20:22)
[2021-10-03] MEDS: PRAZOSIN 1 MG CAP PO SCH (20:23)
[2021-10-03] MEDS: **NOTE PATIENT COMMENT** MISC XX SCH (20:24)
[2021-10-04] MEDS: GLIMEPIRIDE 2 MG TAB PO SCH ×2 (06:50→17:49)
[2021-10-04] MEDS: LEVOTHYROXINE 137MCG TABLET (0.137MG) PO SCH (06:50)
[2021-10-04 06:53] VITALS: BP 125/66
[2021-10-04] MEDS: LIDOCAINE 5% (LIDODERM) PATCH TD SCH (09:04)
[2021-10-04] MEDS: TOPIRAMATE (TopAMAX) 100 MG TAB PO SCH ×2 (09:04→20:11)
[2021-10-04] MEDS: FLUTICASONE PROP 0.05% NASAL SPRAY 16 GM (FLONASE) NARES SCH ×2 (09:04→20:09)
[2021-10-04] MEDS: DICLOFENAC EPOLAMINE 1.3 % PATCH TOP SCH ×2 (09:04→20:09)
[2021-10-04] MEDS: ASPIRIN 81MG ENTERIC TABLET PO SCH (09:05)
[2021-10-04] MEDS: buPROPion **XL** TABLET 150MG (WELLBUTRIN XL) PO SCH (09:05)
[2021-10-04] MEDS: valACYclovir HCL 500 MG TAB PO SCH (09:05)
[2021-10-04] MEDS: SERTRALINE 100 MG TAB PO SCH (09:06)
[2021-10-04] MEDS: OMEPRAZOLE 20MG CAP PO SCH (09:06)
[2021-10-04] MEDS: FUROSEMIDE 40 MG TAB PO SCH (09:06)
[2021-10-04] MEDS: MULTIVITAMINS/MINERALS THERAP 1 TAB PO SCH (09:06)
[2021-10-04 18:06] VITALS: BP 145/91
[2021-10-04] MEDS: **NOTE PATIENT COMMENT** MISC XX SCH (20:09)
[2021-10-04] MEDS: PRAZOSIN 1 MG CAP PO SCH (20:11)
[2021-10-04] MEDS: PRAVASTATIN 20 MG TAB PO SCH (20:11)
[2021-10-05 06:27] VITALS: BP 129/59
[2021-10-05] MEDS: LEVOTHYROXINE 137MCG TABLET (0.137MG) PO SCH (06:43)
[2021-10-05] MEDS: GLIMEPIRIDE 2 MG TAB PO SCH ×2 (06:44→16:31)
[2021-10-05] MEDS: valACYclovir HCL 500 MG TAB PO SCH (09:35)
[2021-10-05] MEDS: FLUTICASONE PROP 0.05% NASAL SPRAY 16 GM (FLONASE) NARES SCH ×2 (09:35→20:31)
[2021-10-05] MEDS: MULTIVITAMINS/MINERALS THERAP 1 TAB PO SCH (09:37)
[2021-10-05] MEDS: ASPIRIN 81MG ENTERIC TABLET PO SCH (09:37)
[2021-10-05] MEDS: buPROPion **XL** TABLET 150MG (WELLBUTRIN XL) PO SCH (09:37)
[2021-10-05] MEDS: TOPIRAMATE (TopAMAX) 100 MG TAB PO SCH ×2 (09:37→20:32)
[2021-10-05] MEDS: OMEPRAZOLE 20MG CAP PO SCH (09:37)
[2021-10-05] MEDS: SERTRALINE 100 MG TAB PO SCH (09:37)
[2021-10-05] MEDS: FUROSEMIDE 40 MG TAB PO SCH (09:37)
[2021-10-05] MEDS: LIDOCAINE 5% (LIDODERM) PATCH TD SCH (09:52)
[2021-10-05] MEDS: DICLOFENAC EPOLAMINE 1.3 % PATCH TOP SCH ×2 (09:52→20:31)
[2021-10-05 18:00] VITALS: BP 131/69
[2021-10-05] MEDS: **NOTE PATIENT COMMENT** MISC XX SCH (20:31)
[2021-10-05] MEDS: PRAZOSIN 1 MG CAP PO SCH (20:32)
[2021-10-05] MEDS: PRAVASTATIN 20 MG TAB PO SCH (20:32)
[2021-10-06] MEDS: LEVOTHYROXINE 137MCG TABLET (0.137MG) PO SCH (05:48)
[2021-10-06] MEDS: GLIMEPIRIDE 2 MG TAB PO SCH ×2 (06:55→17:17)
[2021-10-06 07:06] VITALS: BP 124/76
[2021-10-06] MEDS: ASPIRIN 81MG ENTERIC TABLET PO SCH (09:52)
[2021-10-06] MEDS: MULTIVITAMINS/MINERALS THERAP 1 TAB PO SCH (09:53)
[2021-10-06] MEDS: OMEPRAZOLE 20MG CAP PO SCH (09:53)
[2021-10-06] MEDS: TOPIRAMATE (TopAMAX) 100 MG TAB PO SCH ×2 (09:53→20:37)
[2021-10-06] MEDS: valACYclovir HCL 500 MG TAB PO SCH (09:53)
[2021-10-06] MEDS: buPROPion **XL** TABLET 150MG (WELLBUTRIN XL) PO SCH (09:53)
[2021-10-06] MEDS: SERTRALINE 100 MG TAB PO SCH (09:54)
[2021-10-06] MEDS: FUROSEMIDE 40 MG TAB PO SCH (09:54)
[2021-10-06] MEDS: LIDOCAINE 5% (LIDODERM) PATCH TD SCH (09:58)
[2021-10-06] MEDS: FLUTICASONE PROP 0.05% NASAL SPRAY 16 GM (FLONASE) NARES SCH ×2 (09:58→20:36)
[2021-10-06] MEDS: DICLOFENAC EPOLAMINE 1.3 % PATCH TOP SCH ×2 (09:59→20:36)
[2021-10-06 18:01] VITALS: BP 135/70
[2021-10-06] MEDS: PRAVASTATIN 20 MG TAB PO SCH (20:37)
[2021-10-06] MEDS: **NOTE PATIENT COMMENT** MISC XX SCH (20:37)
[2021-10-06] MEDS: PRAZOSIN 1 MG CAP PO SCH (20:37)
[2021-10-07 06:00] VITALS: BP 100/57
[2021-10-07] MEDS: LEVOTHYROXINE 137MCG TABLET (0.137MG) PO SCH (06:12)
[2021-10-07] MEDS: GLIMEPIRIDE 2 MG TAB PO SCH ×2 (06:59→17:33)
[2021-10-07] MEDS: ASPIRIN 81MG ENTERIC TABLET PO SCH (11:10)
[2021-10-07] MEDS: buPROPion **XL** TABLET 150MG (WELLBUTRIN XL) PO SCH (11:11)
[2021-10-07] MEDS: FUROSEMIDE 40 MG TAB PO SCH (11:11)
[2021-10-07] MEDS: FLUTICASONE PROP 0.05% NASAL SPRAY 16 GM (FLONASE) NARES SCH ×2 (11:12→20:30)
[2021-10-07] MEDS: DICLOFENAC EPOLAMINE 1.3 % PATCH TOP SCH ×2 (11:12→20:30)
[2021-10-07] MEDS: TOPIRAMATE (TopAMAX) 100 MG TAB PO SCH ×2 (11:16→20:30)
[2021-10-07] MEDS: OMEPRAZOLE 20MG CAP PO SCH (11:16)
[2021-10-07] MEDS: MULTIVITAMINS/MINERALS THERAP 1 TAB PO SCH (11:16)
[2021-10-07] MEDS: valACYclovir HCL 500 MG TAB PO SCH (11:17)
[2021-10-07] MEDS: SERTRALINE 100 MG TAB PO SCH (11:17)
[2021-10-07] MEDS: LIDOCAINE 5% (LIDODERM) PATCH TD SCH (11:21)
[2021-10-07 16:11] VITALS: BP 112/57
[2021-10-07] MEDS: PRAZOSIN 1 MG CAP PO SCH (20:29)
[2021-10-07] MEDS: PRAVASTATIN 20 MG TAB PO SCH (20:29)
[2021-10-07] MEDS: **NOTE PATIENT COMMENT** MISC XX SCH (20:30)
[2021-10-08 06:41] VITALS: BP 115/72
[2021-10-08] MEDS: LEVOTHYROXINE 137MCG TABLET (0.137MG) PO SCH (06:45)
[2021-10-08] MEDS: GLIMEPIRIDE 2 MG TAB PO SCH ×2 (06:45→17:21)
[2021-10-08] MEDS: DICLOFENAC EPOLAMINE 1.3 % PATCH TOP SCH ×2 (09:07→20:28)
[2021-10-08] MEDS: LIDOCAINE 5% (LIDODERM) PATCH TD SCH (09:08)
[2021-10-08] MEDS: FLUTICASONE PROP 0.05% NASAL SPRAY 16 GM (FLONASE) NARES SCH ×2 (09:08→20:28)
[2021-10-08] MEDS: TOPIRAMATE (TopAMAX) 100 MG TAB PO SCH ×2 (09:09→20:27)
[2021-10-08] MEDS: ASPIRIN 81MG ENTERIC TABLET PO SCH (09:09)
[2021-10-08] MEDS: MULTIVITAMINS/MINERALS THERAP 1 TAB PO SCH (09:10)
[2021-10-08] MEDS: buPROPion **XL** TABLET 150MG (WELLBUTRIN XL) PO SCH (09:10)
[2021-10-08] MEDS: valACYclovir HCL 500 MG TAB PO SCH (09:10)
[2021-10-08] MEDS: OMEPRAZOLE 20MG CAP PO SCH (09:10)
[2021-10-08] MEDS: SERTRALINE 100 MG TAB PO SCH (09:10)
[2021-10-08] MEDS: FUROSEMIDE 40 MG TAB PO SCH (09:10)
[2021-10-08 18:25] VITALS: BP 117/64
[2021-10-08] MEDS: PRAZOSIN 1 MG CAP PO SCH (20:26)
[2021-10-08] MEDS: PRAVASTATIN 20 MG TAB PO SCH (20:27)
[2021-10-08] MEDS: **NOTE PATIENT COMMENT** MISC XX SCH (20:28)
[2021-10-09 06:38] VITALS: BP 114/56
[2021-10-09] MEDS: GLIMEPIRIDE 2 MG TAB PO SCH ×2 (06:55→18:06)
[2021-10-09] MEDS: LEVOTHYROXINE 137MCG TABLET (0.137MG) PO SCH (06:55)
[2021-10-09] MEDS: LIDOCAINE 5% (LIDODERM) PATCH TD SCH (08:36)
[2021-10-09] MEDS: DICLOFENAC EPOLAMINE 1.3 % PATCH TOP SCH ×2 (08:37→21:00)
[2021-10-09] MEDS: valACYclovir HCL 500 MG TAB PO SCH (08:38)
[2021-10-09] MEDS: MULTIVITAMINS/MINERALS THERAP 1 TAB PO SCH (08:38)
[2021-10-09] MEDS: OMEPRAZOLE 20MG CAP PO SCH (08:38)
[2021-10-09] MEDS: TOPIRAMATE (TopAMAX) 100 MG TAB PO SCH ×2 (08:38→21:00)
[2021-10-09] MEDS: FUROSEMIDE 40 MG TAB PO SCH (08:38)
[2021-10-09] MEDS: SERTRALINE 100 MG TAB PO SCH (08:38)
[2021-10-09] MEDS: buPROPion **XL** TABLET 150MG (WELLBUTRIN XL) PO SCH (08:39)
[2021-10-09] MEDS: ASPIRIN 81MG ENTERIC TABLET PO SCH (08:39)
[2021-10-09] MEDS: FLUTICASONE PROP 0.05% NASAL SPRAY 16 GM (FLONASE) NARES SCH ×2 (08:42→20:59)
[2021-10-09 18:46] VITALS: BP 146/74
[2021-10-09] MEDS: **NOTE PATIENT COMMENT** MISC XX SCH (20:56)
[2021-10-09] MEDS: PRAZOSIN 1 MG CAP PO SCH (21:01)
[2021-10-09] MEDS: ACETAMINOPHEN TAB 650MG DOSE (2X325MG) PO PRN (21:01)
[2021-10-09] MEDS: PRAVASTATIN 20 MG TAB PO SCH (21:01)
[2021-10-10] MEDS: LEVOTHYROXINE 137MCG TABLET (0.137MG) PO SCH (06:19)
[2021-10-10 06:40] VITALS: BP 146/74
[2021-10-10] MEDS: GLIMEPIRIDE 2 MG TAB PO SCH ×2 (08:00→17:11)
[2021-10-10] MEDS: FLUTICASONE PROP 0.05% NASAL SPRAY 16 GM (FLONASE) NARES SCH ×2 (09:10→20:50)
[2021-10-10] MEDS: valACYclovir HCL 500 MG TAB PO SCH (09:10)
[2021-10-10] MEDS: buPROPion **XL** TABLET 150MG (WELLBUTRIN XL) PO SCH (09:13)
[2021-10-10] MEDS: FUROSEMIDE 40 MG TAB PO SCH (09:13)
[2021-10-10] MEDS: OMEPRAZOLE 20MG CAP PO SCH (09:13)
[2021-10-10] MEDS: SERTRALINE 100 MG TAB PO SCH (09:13)
[2021-10-10] MEDS: MULTIVITAMINS/MINERALS THERAP 1 TAB PO SCH (09:13)
[2021-10-10] MEDS: ASPIRIN 81MG ENTERIC TABLET PO SCH (09:13)
[2021-10-10] MEDS: TOPIRAMATE (TopAMAX) 100 MG TAB PO SCH ×2 (09:14→20:50)
[2021-10-10] MEDS: LIDOCAINE 5% (LIDODERM) PATCH TD SCH (09:15)
[2021-10-10] MEDS: DICLOFENAC EPOLAMINE 1.3 % PATCH TOP SCH ×2 (09:15→20:51)
[2021-10-10 17:42] VITALS: BP 122/73
[2021-10-10] MEDS: PRAZOSIN 1 MG CAP PO SCH (20:50)
[2021-10-10] MEDS: PRAVASTATIN 20 MG TAB PO SCH (20:50)
[2021-10-10] MEDS: **NOTE PATIENT COMMENT** MISC XX SCH (20:51)
[2021-10-11] MEDS: LEVOTHYROXINE 137MCG TABLET (0.137MG) PO SCH (05:47)
[2021-10-11 06:35] VITALS: BP 121/60
[2021-10-11] MEDS: GLIMEPIRIDE 2 MG TAB PO SCH ×2 (06:55→17:12)
[2021-10-11] MEDS: DICLOFENAC EPOLAMINE 1.3 % PATCH TOP SCH ×2 (08:43→20:43)
[2021-10-11] MEDS: FLUTICASONE PROP 0.05% NASAL SPRAY 16 GM (FLONASE) NARES SCH ×2 (08:43→20:43)
[2021-10-11] MEDS: OMEPRAZOLE 20MG CAP PO SCH (08:44)
[2021-10-11] MEDS: ASPIRIN 81MG ENTERIC TABLET PO SCH (08:44)
[2021-10-11] MEDS: LIDOCAINE 5% (LIDODERM) PATCH TD SCH (08:44)
[2021-10-11] MEDS: MULTIVITAMINS/MINERALS THERAP 1 TAB PO SCH (08:45)
[2021-10-11] MEDS: TOPIRAMATE (TopAMAX) 100 MG TAB PO SCH ×2 (08:45→20:41)
[2021-10-11] MEDS: buPROPion **XL** TABLET 150MG (WELLBUTRIN XL) PO SCH (08:45)
[2021-10-11] MEDS: valACYclovir HCL 500 MG TAB PO SCH (08:46)
[2021-10-11] MEDS: FUROSEMIDE 40 MG TAB PO SCH (08:46)
[2021-10-11] MEDS ORDERED: SERTRALINE HCL 50 MG TAB PO SCH (09:00)
[2021-10-11 18:32] VITALS: BP 133/79
[2021-10-11] MEDS: IBUPROFEN 600MG TAB PO PRN (20:42)
[2021-10-11] MEDS: PRAZOSIN 1 MG CAP PO SCH (20:42)
[2021-10-11] MEDS: PRAVASTATIN 20 MG TAB PO SCH (20:42)
[2021-10-11] MEDS: **NOTE PATIENT COMMENT** MISC XX SCH (20:46)
[2021-10-12] MEDS: LEVOTHYROXINE 137MCG TABLET (0.137MG) PO SCH (06:16)
[2021-10-12] MEDS: GLIMEPIRIDE 2 MG TAB PO SCH ×2 (06:33→17:30)
[2021-10-12 06:49] VITALS: BP 137/86
[2021-10-12] MEDS: LIDOCAINE 5% (LIDODERM) PATCH TD SCH (09:00)
[2021-10-12] MEDS: DICLOFENAC EPOLAMINE 1.3 % PATCH TOP SCH ×2 (09:00→22:52)
[2021-10-12] MEDS: FLUTICASONE PROP 0.05% NASAL SPRAY 16 GM (FLONASE) NARES SCH ×2 (11:17→22:50)
[2021-10-12] MEDS: ASPIRIN 81MG ENTERIC TABLET PO SCH (11:17)
[2021-10-12] MEDS: FUROSEMIDE 40 MG TAB PO SCH (11:18)
[2021-10-12] MEDS: OMEPRAZOLE 20MG CAP PO SCH (11:18)
[2021-10-12] MEDS: SERTRALINE 100 MG TAB PO SCH (11:18)
[2021-10-12] MEDS: MULTIVITAMINS/MINERALS THERAP 1 TAB PO SCH (11:19)
[2021-10-12] MEDS: valACYclovir HCL 500 MG TAB PO SCH (11:20)
[2021-10-12] MEDS: TOPIRAMATE (TopAMAX) 100 MG TAB PO SCH ×2 (11:20→22:49)
[2021-10-12] MEDS: buPROPion **XL** TABLET 150MG (WELLBUTRIN XL) PO SCH (11:21)
[2021-10-12] MEDS: **NOTE PATIENT COMMENT** MISC XX SCH (21:00)
[2021-10-12] MEDS: PRAZOSIN 1 MG CAP PO SCH (22:49)
[2021-10-12] MEDS: PRAVASTATIN 20 MG TAB PO SCH (22:49)
[2021-10-13] MEDS: LEVOTHYROXINE 137MCG TABLET (0.137MG) PO SCH (05:31)
[2021-10-13 06:00] VITALS: BP 116/57
[2021-10-13] MEDS: MULTIVITAMINS/MINERALS THERAP 1 TAB PO SCH (09:37)
[2021-10-13] MEDS: LIDOCAINE 5% (LIDODERM) PATCH TD SCH (09:37)
[2021-10-13] MEDS: OMEPRAZOLE 20MG CAP PO SCH (09:37)
[2021-10-13] MEDS: SERTRALINE 100 MG TAB PO SCH (09:37)
[2021-10-13] MEDS: ASPIRIN 81MG ENTERIC TABLET PO SCH (09:37)
[2021-10-13] MEDS: buPROPion **XL** TABLET 150MG (WELLBUTRIN XL) PO SCH (09:37)
[2021-10-13] MEDS: valACYclovir HCL 500 MG TAB PO SCH (09:37)
[2021-10-13] MEDS: FUROSEMIDE 40 MG TAB PO SCH (09:38)
[2021-10-13] MEDS: DICLOFENAC EPOLAMINE 1.3 % PATCH TOP SCH ×2 (09:39→21:58)
[2021-10-13] MEDS: FLUTICASONE PROP 0.05% NASAL SPRAY 16 GM (FLONASE) NARES SCH ×2 (09:39→21:59)
[2021-10-13] MEDS: TOPIRAMATE (TopAMAX) 100 MG TAB PO SCH ×2 (09:39→21:59)
[2021-10-13] MEDS: GLIMEPIRIDE 2 MG TAB PO SCH ×2 (09:41→16:59)
[2021-10-13 17:05] VITALS: BP 117/83
[2021-10-13] MEDS: **NOTE PATIENT COMMENT** MISC XX SCH (21:00)
[2021-10-13] MEDS: PRAVASTATIN 20 MG TAB PO SCH (22:00)
[2021-10-13] MEDS: PRAZOSIN 1 MG CAP PO SCH (22:14)
[2021-10-14] MEDS: GLIMEPIRIDE 2 MG TAB PO SCH ×2 (06:32→16:55)
[2021-10-14] MEDS: LEVOTHYROXINE 137MCG TABLET (0.137MG) PO SCH (06:32)
[2021-10-14 06:57] VITALS: BP 121/60
[2021-10-14] MEDS: valACYclovir HCL 500 MG TAB PO SCH (08:32)
[2021-10-14] MEDS: MULTIVITAMINS/MINERALS THERAP 1 TAB PO SCH (08:32)
[2021-10-14] MEDS: buPROPion **XL** TABLET 150MG (WELLBUTRIN XL) PO SCH (08:32)
[2021-10-14] MEDS: FLUTICASONE PROP 0.05% NASAL SPRAY 16 GM (FLONASE) NARES SCH ×2 (08:32→22:28)
[2021-10-14] MEDS: FUROSEMIDE 40 MG TAB PO SCH (08:33)
[2021-10-14] MEDS: SERTRALINE 100 MG TAB PO SCH (08:33)
[2021-10-14] MEDS: TOPIRAMATE (TopAMAX) 100 MG TAB PO SCH ×2 (08:33→22:28)
[2021-10-14] MEDS: ASPIRIN 81MG ENTERIC TABLET PO SCH (08:33)
[2021-10-14] MEDS: OMEPRAZOLE 20MG CAP PO SCH (08:33)
[2021-10-14] MEDS: DICLOFENAC EPOLAMINE 1.3 % PATCH TOP SCH ×2 (08:34→22:28)
[2021-10-14] MEDS: LIDOCAINE 5% (LIDODERM) PATCH TD SCH (08:34)
[2021-10-14 17:22] VITALS: BP 142/94
[2021-10-14] MEDS: **NOTE PATIENT COMMENT** MISC XX SCH (21:00)
[2021-10-14] MEDS: PRAVASTATIN 20 MG TAB PO SCH (22:28)
[2021-10-14] MEDS: PRAZOSIN 1 MG CAP PO SCH (22:28)
[2021-10-15] MEDS: LEVOTHYROXINE 137MCG TABLET (0.137MG) PO SCH (06:02)
[2021-10-15] MEDS: GLIMEPIRIDE 2 MG TAB PO SCH ×2 (06:54→17:16)
[2021-10-15 06:59] VITALS: BP 105/78
[2021-10-15] MEDS: FLUTICASONE PROP 0.05% NASAL SPRAY 16 GM (FLONASE) NARES SCH ×2 (09:18→20:47)
[2021-10-15] MEDS: LIDOCAINE 5% (LIDODERM) PATCH TD SCH (09:18)
[2021-10-15] MEDS: DICLOFENAC EPOLAMINE 1.3 % PATCH TOP SCH ×2 (09:18→20:46)
[2021-10-15] MEDS: SERTRALINE 100 MG TAB PO SCH (09:19)
[2021-10-15] MEDS: TOPIRAMATE (TopAMAX) 100 MG TAB PO SCH ×2 (09:19→20:46)
[2021-10-15] MEDS: OMEPRAZOLE 20MG CAP PO SCH (09:19)
[2021-10-15] MEDS: MULTIVITAMINS/MINERALS THERAP 1 TAB PO SCH (09:19)
[2021-10-15] MEDS: FUROSEMIDE 40 MG TAB PO SCH (09:19)
[2021-10-15] MEDS: ASPIRIN 81MG ENTERIC TABLET PO SCH (09:19)
[2021-10-15] MEDS: buPROPion **XL** TABLET 150MG (WELLBUTRIN XL) PO SCH (09:20)
[2021-10-15] MEDS: valACYclovir HCL 500 MG TAB PO SCH (09:21)
[2021-10-15 18:07] VITALS: BP 138/74
[2021-10-15] MEDS: PRAVASTATIN 20 MG TAB PO SCH (20:46)
[2021-10-15] MEDS: PRAZOSIN 1 MG CAP PO SCH (20:47)
[2021-10-15] MEDS: **NOTE PATIENT COMMENT** MISC XX SCH (20:48)
[2021-10-16 06:30] VITALS: BP 128/71
[2021-10-16] MEDS: GLIMEPIRIDE 2 MG TAB PO SCH (06:38)
[2021-10-16] MEDS: LEVOTHYROXINE 137MCG TABLET (0.137MG) PO SCH (06:38)
[2021-10-16 08:04] VITALS: BP 128/71
[2021-10-16] MEDS: LIDOCAINE 5% (LIDODERM) PATCH TD SCH (08:04)
[2021-10-16] MEDS: DICLOFENAC EPOLAMINE 1.3 % PATCH TOP SCH (08:04)
[2021-10-16] MEDS: FLUTICASONE PROP 0.05% NASAL SPRAY 16 GM (FLONASE) NARES SCH (08:04)
[2021-10-16] MEDS: buPROPion **XL** TABLET 150MG (WELLBUTRIN XL) PO SCH (08:04)
[2021-10-16] MEDS: FUROSEMIDE 40 MG TAB PO SCH (08:05)
[2021-10-16] MEDS: valACYclovir HCL 500 MG TAB PO SCH (08:05)
[2021-10-16] MEDS: TOPIRAMATE (TopAMAX) 100 MG TAB PO SCH (08:05)
[2021-10-16] MEDS: ASPIRIN 81MG ENTERIC TABLET PO SCH (08:05)
[2021-10-16] MEDS: MULTIVITAMINS/MINERALS THERAP 1 TAB PO SCH (08:05)
[2021-10-16] MEDS: OMEPRAZOLE 20MG CAP PO SCH (08:06)
[2021-10-16] MEDS ORDERED: SERTRALINE 100 MG TAB PO SCH (09:00)
[2021-10-16] MEDS ORDERED: HALD100I2 IM (11:14)
[2021-10-16] MEDS ORDERED: VALA500T5 PO (11:14)
[2021-10-16] MEDS ORDERED: LIDO5TD TD (11:14)
[2021-10-16] MEDS ORDERED: DICL1PAT6 TOP (11:14)
[2021-10-16] MEDS ORDERED: HALD50IN4 IM (11:14)
[2021-10-16] MEDS ORDERED: BUPR150T12 PO (11:14)
[2021-10-16] MEDS ORDERED: ZOLO100T PO (11:14)
== END 2021-10-16 12:14 | DRG 750 ==
LOC: M PSY 15:54
PROVIDERS: ADMIT Psychiatry & Neurology Psychiatry; ATTEND Student in an Organized Health Care Education/Training Program
DX: F20.0 Paranoid schizophrenia (principal); E11.9 Type 2 diabetes mellitus without complications; I10 Essential (primary) hypertension; Z91.19 Patient's noncompliance with other medical treatment and regimen; F79 Unspecified intellectual disabilities; F29 Unspecified psychosis not due to a substance or known physiological condition; E78.5 Hyperlipidemia, unspecified; M19.90 Unspecified osteoarthritis, unspecified site; M54.59 Other low back pain; Z79.899 Other long term (current) drug therapy; Z79.82 Long term (current) use of aspirin; Z88.8 Allergy status to other drugs, medicaments and biological substances; Z88.5 Allergy status to narcotic agent; Z88.2 Allergy status to sulfonamides; E03.9 Hypothyroidism, unspecified; K21.9 Gastro-esophageal reflux disease without esophagitis; M72.2 Plantar fascial fibromatosis; F41.9 Anxiety disorder, unspecified

== ENCOUNTER 2022-02-06 00:55 | Emergency (ER) | payer OTHER ==
[~2022-02-06] VITALS: Ht 167.6 cm; Wt 125.9 kg
[~2022-02-06 00:55] MED LIST changes: +BUPR150T12 PO; +DICL1PAT6 TOP; +HALD100I2 IM; +HALD50IN4 IM; +LIDO5TD TD; +VALA500T5 PO; +ZOLO100T PO
[2022-02-06] MEDS ORDERED: NS 1,000 ML IV ONE (01:45)
[2022-02-06] MEDS ORDERED: ONDANSETRON 4MG 2ML VIAL IV ONE (01:50)
[2022-02-06] MEDS ORDERED: ISOVUE-370 76% 100ML VIAL As Ordered ONE (01:51)
[2022-02-06 02:20] LABS: BASO # 0.1 10^3/uL (0.0-0.2); BASO % 0.3 % (0.0-1.0); EOS # 0.3 10^3/uL (0.0-0.5); EOS % 1.5 % (0.0-3.0); HEMATOCRIT 40.4 % (36.0-47.0); HEMOGLOBIN 13.5 g/dl (12.0-15.5); LYMPH # 2.7 10^3/uL (1.5-5.0); LYMPH % 14.1 % (24.0-44.0); MEAN CORPUSCULAR HEMOGLOBIN 30.4 pg (27.0-33.0); MEAN CORPUSCULAR HGB CONC 33.4 g/dl (32.0-36.5); MONO # 1.5 10^3/uL (0.0-0.8); NEUTROPHILS # 14.4 10^3/uL (1.5-8.5); NEUTROPHILS % 75.4 % (36.0-66.0); PLATELET COUNT, AUTOMATED 344 10^3/uL (150-450); RED BLOOD COUNT 4.44 10^6/uL (4.00-5.40); WHITE BLOOD COUNT 19.2 10^3/uL (4.0-10.0)
[2022-02-06 02:34] LABS: INR 0.87
[2022-02-06 03:01] LABS: RSV AMPLIFICATION NEGATIVE (NEGATIVE)
[2022-02-06 03:41] LABS: ALBUMIN 3.2 GM/DL (3.2-5.2); ALT/SGPT 22 U/L (12-78); BILIRUBIN,DIRECT < 0.1 MG/DL (0.0-0.2); BILIRUBIN,TOTAL 0.2 MG/DL (0.2-1.0); BLOOD UREA NITROGEN 18 MG/DL (7-18); CALCIUM LEVEL 8.6 MG/DL (8.5-10.1); CARBON DIOXIDE LEVEL 26 MEQ/L (21-32); CHLORIDE LEVEL 106 MEQ/L (98-107); CK-MB VALUE MASS < 1.0 NG/ML (<3.6); CPK CREATINE PHOSPHOKINASE 93 U/L (26-192); CREATININE FOR GFR 0.82 MG/DL (0.55-1.30); ETHYL ALCOHOL (ETHANOL) < 0.003 % (0.000-0.010); GLOMERULAR FILTRATION RATE > 60.0 (>51); GLUCOSE, FASTING 137 MG/DL (70-100); MB/CK RELATIVE INDEX 1.08 (< OR =4); POTASSIUM SERUM 4.4 MEQ/L (3.5-5.1); SODIUM LEVEL 140 MEQ/L (136-145); TOTAL PROTEIN 6.7 GM/DL (6.4-8.2)
[2022-02-06 05:09] LABS: APPEARANCE, URINE MANUAL CLEAR (CLEAR); BILIRUBIN, URINE MANUAL NEGATIVE (NEGATIVE); BLOOD URINE MANUAL NEGATIVE (NEGATIVE); COLOR, URINE MANUAL LT YELLOW (YELLOW); GLUCOSE, URINE (UA) MANUAL NEGATIVE (NEGATIVE); KETONE, URINE MANUAL NEGATIVE (NEGATIVE); LEUKOCYTE ESTERASE, URINE MAN NEGATIVE (NEGATIVE); NITRITE, URINE MANUAL NEGATIVE (NEGATIVE); PROTEIN, URINE MANUAL NEGATIVE (NEGATIVE); UROBILINOGEN, URINE MANUAL NORMAL (NORMAL)
[2022-02-06 05:45] VITALS: BP 180/84
[2022-02-06 05:49] LABS: AMPHETAMINES LEVEL URINE NEGATIVE (NEGATIVE); BARBITURATES URINE NEGATIVE (NEGATIVE); BENZODIAZEPINES URINE NEGATIVE (NEGATIVE); CANNABINOIDS URINE NEGATIVE (NEGATIVE); COCAINE METABOLITE URINE NEGATIVE (NEGATIVE); METHADONE URINE NEGATIVE (NEGATIVE); OPIATES URINE NEGATIVE (NEGATIVE); PHENCYCLIDINE URINE NEGATIVE (NEGATIVE)
[2022-02-06 05:57] LABS: CK-MB VALUE MASS < 1.0 NG/ML (<3.6); CPK CREATINE PHOSPHOKINASE 90 U/L (26-192); MB/CK RELATIVE INDEX 1.11 (< OR =4)
== END 2022-02-06 06:38 | disposition home or self-care (01) ==
LOC: M ED 00:55
DX: S92.324A Nondisplaced fracture of second metatarsal bone, right foot, initial encounter for closed fracture (principal); S92.334A Nondisplaced fracture of third metatarsal bone, right foot, initial encounter for closed fracture; S92.344A Nondisplaced fracture of fourth metatarsal bone, right foot, initial encounter for closed fracture; S20.211A Contusion of right front wall of thorax, initial encounter; R10.9 Unspecified abdominal pain; V48.5XXA Car driver injured in noncollision transport accident in traffic accident, initial encounter; E11.9 Type 2 diabetes mellitus without complications; I10 Essential (primary) hypertension; F20.9 Schizophrenia, unspecified; Z90.49 Acquired absence of other specified parts of digestive tract; Z88.2 Allergy status to sulfonamides; Z88.5 Allergy status to narcotic agent; Z79.899 Other long term (current) drug therapy; Z79.51 Long term (current) use of inhaled steroids; Z79.82 Long term (current) use of aspirin; Z79.890 Hormone replacement therapy
CPT/HCPCS: 70450; 71260; 72125; 73630; 74177; 80047; 80048; 80076; 80307; 81002; 82077; 82550; 82553; 83605; 84484; 85025; 85610; 85730; 86850; 86900; 86901; 87631; 93005; 93041; 94760; 96361; 96374; 99285; J2405; Q9967